=== PATIENT | female | born 1955 | race Caucasian/White ===

== ENCOUNTER 2016-06-21 06:14 | Inpatient (IN) | payer OTHER ==
[2016-06-20 13:29] VITALS: BMI 38.2
[~2016-06-21 06:14] MED LIST: BACITRACIN 30 GM TUBE TOPICAL OINTMENT TP ONE; BACITRACIN 50,000 UNITS VIAL TP ONE; THROMBIN (BOVINE) 5,000 UNIT VIAL TP ONE
[2016-06-21] MEDS ORDERED: ROCURONIUM BROMIDE 50 MG/5 ML VIAL ONE (08:16)
[2016-06-21] MEDS ORDERED: PROPOFOL 20 ML ONE ×24 (08:16→15:13)
[2016-06-21] MEDS ORDERED: MIDAZOLAM HCL 2 MG/2 ML SINGLE DOSE VIAL ONE ×2 (08:16)
[2016-06-21] MEDS ORDERED: SCOPOLAMINE HYDROBROMIDE 1 PATCH PATCH.TD72 ONE (08:33)
[2016-06-21] MEDS ORDERED: VANCOMYCIN 1,000 MG VIAL (RESTRICTED TO ID ONLY) ONE (08:58)
[2016-06-21] MEDS ORDERED: LEVOFLOXACIN 500 MG IVPB 100 ML IVPB ONE (08:58)
[2016-06-21] MEDS ORDERED: VANCOMYCIN 1 GRAM (PRE-DOCKED) 1,000 MG/250 ML BAG IVPB ONE ×2 (08:58→22:00)
[2016-06-21] MEDS ORDERED: THROMBIN (BOVINE) 5,000 UNIT VIAL TP ONE ×2 (09:30)
[2016-06-21] MEDS ORDERED: BACITRACIN 50,000 UNITS VIAL TP ONE ×2 (09:30)
[2016-06-21] MEDS ORDERED: LEVOFLOXACIN 500 MG PREMIX BAG IVPB ONE (09:40)
[2016-06-21] MEDS ORDERED: ONDANSETRON 4 MG/2 ML VIAL ONE (10:02)
[2016-06-21] MEDS ORDERED: DEXAMETHASONE SOD PHOSPHATE 4 MG/1 ML VIAL ONE (10:02)
[2016-06-21] MEDS ORDERED: GLYCOPYRROLATE 0.2 MG/1 ML VIAL ONE (10:32)
[2016-06-21] MEDS ORDERED: NEOSTIGMINE METHYLSULFATE 0.5 MG/ML - 10 ML MDV ONE (10:32)
[2016-06-21] MEDS ORDERED: BACITRACIN 30 GM TUBE TOPICAL OINTMENT ONE (15:00)
[2016-06-21] MEDS ORDERED: BUPIVACAINE HCL/PF 0.5% (5MG/ML) 10 ML VIAL ONE (15:00)
[2016-06-21] MEDS ORDERED: BUPIVACAINE HCL/PF 0.5% (5MG/ML) 10 ML VIAL IJ ONE (15:00)
[2016-06-21] MEDS ORDERED: BACITRACIN 30 GM TUBE TOPICAL OINTMENT TP ONE (16:23)
--- NOTE | 2016-06-21 16:29 | OP ---
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; L4-5 and L5 -S1 DDD; lumbar radiculopathy Operation: Redo bilateral L3,4,5,S1 lamniectomies, L3-4, L4-5, L5-S1 discectomies, autologous bone graft, interbody fusion L3-4, L4-5, L5-S1; postero -lateral fusion L3-4, L4-5, L5-S1; pedicle fixation L3-S1 with Mirza Isabella 4.5 system; 11 mm interbody implants L4-5 and L5-S1 and 13 mm interbody implants L3- 4; fluoroscopy Findings: dense R L3-4 fibrosis; instability L3-4; marked DDD space narrowing L4-5; lateral recess stenosis; thinned dura; attenuated R LE SSEP signal amplitude, improved with time Implants: Mirza Isabella 4.5 system (6.5 x 45 mm screws B L3-4-5 and 7.5 x 40 mm B S1 screws; 80 mm rods B, 36 mm croslinks x2); B interbody corticocancellous implants L3-4 (13mm) and L4-5/L5-S1 (11mm); autograft' duragen; Duraseal Surgeon: Michael Floyd ([place]) Microscopist: Robyn Alfaro Anesthesiologist/AUTOMOTIVE PARTS COUNTER ASSISTANT: Isabella Her Anesthesia: General Specimens Removed: L3-4, L4-5, L5-S1 DDD Estimated Blood Loss (mls): 750 Drains & Tubes with Location: 10 Flat THU epidural drain
[2016-06-21] MEDS ORDERED: BISACODYL 10 MG SUPP.RECT RC PRN (16:34)
[2016-06-21] MEDS ORDERED: ONDANSETRON 4 MG/2 ML VIAL IVPB PRN (16:34)
[2016-06-21] MEDS ORDERED: ALBUTEROL SO4 6.7 GM HFA INHALER IH PRN ×2 (16:38→17:44)
[2016-06-21] MEDS ORDERED: DEXAMETHASONE SOD PHOSPHATE 4 MG/1 ML VIAL IVPUSH PRN (16:54)
[2016-06-21] MEDS ORDERED: ONDANSETRON 4 MG/2 ML VIAL IVPUSH PRN (16:54)
[2016-06-21] MEDS ORDERED: PROMETHAZINE HCL 25 MG/1 ML VIAL IVPB PRN (16:54)
[2016-06-21] MEDS ORDERED: HYDROmorphone HCL CARPU-JECT 2 MG/1 ML DISP.SYRIN ONE (16:59)
[2016-06-21] MEDS: HYDROmorphone HCL CARPU-JECT 1 MG/1 ML DISP.SYRIN IVPUSH PRN ×2 (17:02→17:45)
--- NOTE | 2016-06-21 17:17 | PN ---
Progress Note (short form) - Note Progress Note: NEUROSURGERY In PACU AF, VSS Sleepy Drain- 25 cc Dressing C/D/I Mild redness R breast Moving B UE and LE at least 3-4-/5 FUR TAILOR and valium Labs pending Spoke to family re: intra-op findings
[2016-06-21 18:21] LABS: MCH 27.9 pg (25.7-33.7); MCHC 32.3 g/dl (32.0-36.0); MEAN CELL VOLUME 86.3 fl (80-96); MEAN PLT VOLUME 9.9 fl (7.5-11.1); PLATELET COUNT 269 K/MM3 (134-434); RDW 14.2 % (11.6-15.6); WHITE BLOOD COUNT 21.6 K/mm3 (4.0-10.0)
[2016-06-21] MEDS: HYDROmorphone *PCA* 10MG/50ML DISP.SYRIN PCA SCH (18:26)
[2016-06-21 19:30] LABS: CALCIUM 8.4 mg/dL (8.5-10.1); CREATININE 1.2 mg/dL (0.55-1.02)
[2016-06-21 20:33] LABS: PLATELET ESTIMATE ADEQUATE (NORMAL)
[2016-06-21] MEDS: D5-1/2NS+20 MEQ KCL - 1,000 ML IV SCH (21:52)
--- NOTE | 2016-06-21 22:53 | OP ---
DATE OF OPERATION:06/21/2016 DATE OF DICTATION: 06/21/2016 PREOPERATIVE DIAGNOSIS: Instability and radiculopathy at L3-4, L4-5, and L5-S1 levels. POSTOPERATIVE DIAGNOSIS: Instability and radiculopathy at L3-4, L4-5, and L5-S1 levels. PROCEDURE: L3 through S1 interbody fusion and instrumentation and laminectomy. SURGEON ATTENDING: Priyanka Boudreaux M.D. CO-SURGEON: Michael Floyd M.D. ANESTHESIA: General endotracheal intubation. POSITION: Prone. CLOSURE: 0 Vicryl fascia, 3-0 subcutaneous, and 4-0 undyed Vicryl to skin with Steri-Strips. ESTIMATED BLOOD LOSS: Refer to Dr. Michael Floyd's dictation. DESCRIPTION OF PROCEDURE: The patient is taken to the operating room on June 21, 2016. My portion of this procedure was opening and gaining access to the lumbar spine as far as the interbody fusion and please see Dr. Michael Floyd's dictation for all description of that part of the procedure. Patient was taken to the operating room on June 21, 2016. General endotracheal anesthesia was administered by the anesthesiologist. IV Kefzol administered prophylactically prior to the case. The patient was placed in the prone position with all prominences well padded. The lower lumbar region was prepped and draped in the usual sterile fashion. A spinal needle was used to isolate the level that needed to be operated on. A spinal needle was placed followed by an x-ray confirming the appropriate level. The lower lumbar region was then prepped and draped in the usual sterile fashion. A midline incision from L3 down to S1 was incised. Hemostasis was achieved with Bovie cautery and sharp dissection was carried down to the level of the spinous processes, and then subperiosteal dissection was performed down to the level of the lamina. At this time, Dr. Michael Floyd took over. Please see his dictation for the rest of this dictation and the interbody fusion procedure. Post Dr. Floyd's fusion from L3-S1, the wound was closed in layers with 0 Vicryl fascia, 2-0 and 3-0 subcutaneous and 4-0 undyed Vicryl for skin with Steri- Strips. A pressure dressing was applied. Patient awakened from anesthesia, transferred to recovery in stable condition. No complications. PRIYANKA BOUDREAUX M.D. [id number] MTDHermelinda
[2016-06-21] MEDS: MONTELUKAST NA 10 MG TABLET PO SCH (23:31)
[2016-06-21] MEDS: diazePAM 5 MG TABLET PO SCH (23:31)
[2016-06-21] MEDS: DOXAZOSIN MESYLATE 2 MG TABLET (FP) PO SCH (23:31)
[2016-06-21] MEDS: DOCUSATE SODIUM 100 MG CAPSULE (FP) PO SCH (23:32)
[2016-06-21] MEDS: hydrALAZINE HCL 50 MG TABLET (FP) PO SCH (23:32)
[2016-06-21] MEDS: VALSARTAN 160 MG TABLET (UD) PO SCH (23:32)
[2016-06-21] MEDS: BUDESONIDE/FORMETEROL FUMARATE 80/4.5 mcg INHALER IH SCH (23:32)
[2016-06-22] MEDS ORDERED: PT OWN MED DRAWER 7, Y5N ONE ×2 (06:01→23:10)
[2016-06-22] MEDS: diazePAM 5 MG TABLET PO SCH ×3 (06:03→23:03)
[2016-06-22] MEDS: DOCUSATE SODIUM 100 MG CAPSULE (FP) PO SCH ×3 (06:03→23:03)
--- NOTE | 2016-06-22 07:15 | PN ---
Progress Note (short form) - Note Progress Note: NEUROSURGERY POD #1 Incisional pain; + nausea Tmax 100 now 99.5 Sleepy Drain- 150 cc total Dressing C/D/I Mild redness R breast Moving B UE 4+; B IP 4; B DF 4+; R PF 4, L PF 4+ pain limited Sensation grossly intact VOICE PATHOLOGIST and valium for pain and muscle spasm WBC 21.6; Hgb 10.7; ; Cr 1.2; BUN 20; repeat AM labs pending Bed rest today Incentive spirometry Spoke to pt re: intra-op findings
[2016-06-22 07:30] LABS: MCHC 32.4 g/dl (32.0-36.0); MEAN CELL VOLUME 86.5 fl (80-96); MEAN PLT VOLUME 9.1 fl (7.5-11.1); PLATELET COUNT 206 K/MM3 (134-434); WHITE BLOOD COUNT 21.1 K/mm3 (4.0-10.0)
[2016-06-22 08:12] LABS: ALBUMIN 2.8 g/dl (3.4-5.0); CALCIUM 7.8 mg/dL (8.5-10.1)
[2016-06-22 08:15] LABS: BILIRUBIN,TOTAL 0.6 mg/dL (0.2-1.0); CREATININE 1.8 mg/dL (0.55-1.02); TOT PROT 5.5 g/dl (6.4-8.2)
[2016-06-22] MEDS: ALBUTEROL SO4 0.083% IH SOL 2.5 MG/3 ML VIAL.NEB. NEB PRN ×2 (09:15→18:03)
[2016-06-22] MEDS: VALSARTAN 160 MG TABLET (UD) PO SCH ×2 (10:57→23:03)
[2016-06-22] MEDS: hydrALAZINE HCL 50 MG TABLET (FP) PO SCH ×2 (10:57→23:02)
[2016-06-22] MEDS: FUROSEMIDE 20 MG TABLET (FP) PO SCH (10:57)
[2016-06-22] MEDS: PANTOPRAZOLE 40 MG TABLET (FP) PO SCH (10:57)
[2016-06-22] MEDS: DOXAZOSIN MESYLATE 2 MG TABLET (FP) PO SCH ×2 (10:57→23:02)
[2016-06-22] MEDS: BUDESONIDE/FORMETEROL FUMARATE 80/4.5 mcg INHALER IH SCH ×2 (12:47→23:11)
[2016-06-22] MEDS: NYSTATIN POWDER 100,000 UNITS/GM - 15 GM TOPICAL POWDER TP SCH (12:47)
--- NOTE | 2016-06-22 14:56 | PN ---
Progress Note (short form) - Note Progress Note: Anesthesia POD#1 S/P Lumbar Fusion from L3-S1 under GA and Dilaudid RADIO COMMUNICATIONS MECHANICIAN for Pain Vitals Stable Pain is under control with RADIO COMMUNICATIONS MECHANICIAN Right breast redness from being supine. Drowsy,otherwise responsive Hg dropped a little. Creatinine is rising. A/P Continue RADIO COMMUNICATIONS MECHANICIAN for today.increase her hydration. No complications to anesthesia seen. Breast will recover with time. Isabella Her MD.
[2016-06-22] MEDS: D5-1/2NS+20 MEQ KCL - 1,000 ML IV SCH (17:25)
[2016-06-22] MEDS: CLINDAMYCIN 600MG PREMIX IVPB 50 ML IVPB SCH ×2 (17:25→23:02)
[2016-06-22] MEDS: HYDROmorphone *PCA* 10MG/50ML DISP.SYRIN PCA SCH ×2 (18:42→20:01)
[2016-06-22] MEDS: MONTELUKAST NA 10 MG TABLET PO SCH (23:03)
[2016-06-23] MEDS: ACETAMINOPHEN 325 MG TABLET (FP) PO PRN ×2 (00:33→13:14)
[2016-06-23] MEDS: CLINDAMYCIN 600MG PREMIX IVPB 50 ML IVPB SCH ×2 (02:22→10:10)
[2016-06-23] MEDS: diazePAM 5 MG TABLET PO SCH ×3 (06:39→21:40)
[2016-06-23] MEDS: DOCUSATE SODIUM 100 MG CAPSULE (FP) PO SCH ×3 (06:39→21:40)
[2016-06-23] MEDS: D5-1/2NS+20 MEQ KCL - 1,000 ML IV SCH (06:47)
--- NOTE | 2016-06-23 07:39 | PN ---
Progress Note (short form) - Note Progress Note: NEUROSURGERY POD #2 Incisional pain; + nausea Tmax 102.4 now 98.1 Sleepy Drain- 210 cc total; minimal 1 cc since midnight (clogged) Dressing with moderate drainage Moving B UE 4+; B IP 4; B DF 4+; R PF 4, L PF 4+ pain limited Sensation grossly intact MYSQL DATABASE ADMINISTRATOR and valium for pain and muscle spasm WBC 21.1; Hgb 9.3; Cr 1.8; BUN 26 Drain DC'd Bed rest today Incentive spirometry Cont IVF given Cr Medical f/u
[2016-06-23] MEDS: ALBUTEROL SO4 0.083% IH SOL 2.5 MG/3 ML VIAL.NEB. NEB PRN (08:07)
--- NOTE | 2016-06-23 08:18 | PN ---
Progress Note, Physician Chief Complaint: Pt. had some shortness of breath as I walked into room. Found respiratory therapist to give breathing treatment. Still has pain controlled by DOOR INSTALLER. No complications. - Current Medication List Current Medications: Active Medications Acetaminophen (Tylenol -) 650 mg PO Q6H PRN PRN Reason: FEVER Last Admin: 06/23/16 00:33 Dose: 650 mg Albuterol Sulfate (Ventolin Hfa Inhaler -) 1 puff IH QID PRN PRN Reason: Wheezing-SOB Albuterol Sulfate (Ventolin Hfa Inhaler -) 2 puff IH QID PRN PRN Reason: WHEEZING/SOB Albuterol Sulfate (Ventolin 0.083% Nebulizer Soln -) 1 amp NEB Q4H PRN PRN Reason: SHORT OF BREATH/WHEEZING Last Admin: 06/23/16 08:07 Dose: 1 amp Bisacodyl (Dulcolax Suppository -) 10 mg RC DAILY PRN PRN Reason: CONSTIPATION Budesonide/Formoterol Fumarate (Symbicort 80/4.5mcg -) 2 puff IH BID [facility] Last Admin: 06/22/16 23:11 Dose: 2 puff Dexamethasone Sodium Phosphate (Decadron Injection -) 4 mg IVPUSH ONCE PRN PRN Reason: NAUSEA AND/OR VOMITING Diazepam (Valium -) 10 mg PO TID [facility] Last Admin: 06/23/16 06:39 Dose: 10 mg Diphenhydramine HCl (Benadryl Injection -) 12.5 mg IVPUSH ONCE PRN PRN Reason: FOR ITCHING Docusate Sodium (Colace -) 100 mg PO TID [facility] Last Admin: 06/23/16 06:39 Dose: 100 mg Doxazosin Mesylate (Cardura -) 8 mg PO BID [facility] Last Admin: 06/22/16 23:02 Dose: 8 mg Furosemide (Lasix -) 20 mg PO DAILY [facility] Last Admin: 06/22/16 10:57 Dose: Not Given Hydralazine HCl (Apresoline -) 50 mg PO BID [facility] Last Admin: 06/22/16 23:02 Dose: 50 mg Hydromorphone HCl (Dilaudid Injection -) 1 mg IVPUSH [id number] PRN PRN Reason: PAIN Stop: 06/24/16 16:55 Last Admin: 06/21/16 17:45 Dose: 1 mg Hydromorphone HCl (Dilaudid Funder -) 10 mg DOOR INSTALLER DOOR INSTALLER ALISE PRN Reason: Protocol Stop: 06/28/16 16:55 Last Admin: 06/22/16 20:01 Dose: Not Given Potassium Chloride/Dextrose/Sod Cl (D5-1/2ns+20 Meq Kcl -) 1,000 mls @ 100 mls/ hr IV ASDIR ALISE Last Admin: 06/23/16 06:47 Dose: 100 mls/hr Potassium Chloride/Dextrose/Sod Cl (D5-1/2ns+20 Meq Kcl -) 1,000 mls @ 42 mls/ hr IV ASDIR ALISE Clindamycin Phosphate (Cleocin 600 Mg Premix Ivpb -) 50 mls @ 100 mls/hr IVPB Q6H-IV [facility] Last Admin: 06/23/16 02:22 Dose: 100 mls/hr Montelukast Sodium (Singulair -) 10 mg PO HS [facility] Last Admin: 06/22/16 23:03 Dose: 10 mg Nystatin (Nystop Powder -) 1 applic TP DAILY [facility] Last Admin: 06/22/16 12:47 Dose: 1 applic Ondansetron HCl (Zofran Injection) 4 mg IVPB Q6H PRN PRN Reason: NAUSEA AND/OR VOMITING Pantoprazole Sodium (Protonix -) 40 mg PO DAILY [facility] Last Admin: 06/22/16 10:57 Dose: 40 mg Promethazine HCl (Phenergan Injection -) 12.5 mg IVPB Q6H PRN PRN Reason: NAUSEA AND/OR VOMITING Valsartan (Diovan -) 160 mg PO BID [facility] Last Admin: 06/22/16 23:03 Dose: 160 mg Vancomycin HCl (Vancomycin (Pre-Docked)) 1,000 mg IVPB BID [facility] PRN Reason: Protocol Stop: 06/22/16 21:59 - Objective Vital Signs: Vital Signs Temperature 98.7 F 06/23/16 06:00 Pulse Rate 93 H 06/23/16 06:00 Respiratory Rate 16 06/23/16 06:00 Blood Pressure 109/54 06/23/16 06:00 O2 Sat by Pulse Oximetry (%) 94 L 06/22/16 21:00 Constitutional: Yes: Well Nourished, Mild Distress Neurological: Yes: WNL, Alert, Oriented Labs: CBC, BMP 06/22/16 06:50 06/22/16 06:50 Assessment/Plan POD#1 s/p PLIF L3-S1 under GA with Dilaudid DOOR INSTALLER. Doing well from anesthesia standpoint. Continue DOOR INSTALLER.
--- NOTE | 2016-06-23 08:27 | CONSULT ---
Consult - History of Present Illness History of Present Illness: 60 Y/O FEMAL S/P BACK SURGERY NOTED WITH ELEVATED CR PT C/O BACK PAIN DENIES ANY CP OR SOB - Past Medical History Cardio/Vascular: Yes: HTN, Hyperlipdemia Pulmonary: Yes: Asthma, Bronchitis, COPD Gastrointestinal: Yes: GERD ...: No - Past Surgical History Past Surgical History: Yes: Laminectomy (s/p epidural abscess), Splenectomy - Alcohol/Substance Use Hx Alcohol Use: Yes (OCCAS) - Smoking History Smoking history: Former smoker Have you smoked in the past 12 months: No Aproximately how many cigarettes per day: 0 If you are a former smoker, when did you quit?: OVER 25 YEARS AGO Home Medications - Allergies Allergies/Adverse Reactions: Allergies Allergy/AdvReac Type Severity Reaction Status Date / Time Penicillins Allergy Severe Hives Verified 09/13/15 15:12 Sulfa (Sulfonamide Allergy Unknown Verified 06/20/16 13:31 Antibiotics) EGGS Allergy Severe Uncoded 06/20/16 13:31 flu shot AdvReac Severe Uncoded 06/21/16 07:10 - Home Medications Home Medications: Ambulatory Orders Albuterol Sulfate Inhaler - [Ventolin HFA Inhaler -] 1 - 2 inh PO QID PRN Doxazosin Mesylate [Cardura -] 8 mg PO BID #30 tablet 04/30/14 Furosemide [Lasix -] 20 mg PO DAILY #30 tablet 04/30/14 Montelukast Na [Singulair -] 10 mg PO HS #30 tablet 04/30/14 Pantoprazole Sodium [Protonix -] 40 mg PO DAILY #30 tablet.ec 04/30/14 Potassium Chloride [K-Dur -] 20 meq PO DAILY #30 tablet.er 04/30/14 Valsartan [Diovan] 160 mg PO BID #30 tablet 04/30/14 Aspirin [Aspirin EC] 325 mg PO DAILY 01/04/15 Hydralazine HCl 50 mg PO BID 01/05/15 Fluticasone/Salmeterol [Advair 250-50 Diskus] 1 each IH BID 09/13/15 Oxycodone HCl 10 mg PO Q6H PRN #30 tablet MDD UNKNOWN 09/17/15 Family Disease History - Family Disease History Family Disease History: Heart Disease: Father Review of Systems - Review of Systems Cardiovascular: denies: Chest Pain Respiratory: denies: SOB Gastrointestinal: denies: Abdominal Pain Musculoskeletal: reports: Back Pain Physical Exam Vital Signs: Vital Signs Temperature 98.7 F 06/23/16 06:00 Pulse Rate 93 H 06/23/16 06:00 Respiratory Rate 16 06/23/16 06:00 Blood Pressure 109/54 06/23/16 06:00 O2 Sat by Pulse Oximetry (%) 94 L 06/22/16 21:00 Cardiovascular: Yes: Tachycardia, S1, S2 Respiratory: Yes: Regular, CTA Bilaterally Gastrointestinal: Yes: Normal Bowel Sounds, Soft Edema: No Labs: CBC, BMP 06/22/16 06:50 06/22/16 06:50 Problem List - Problems (1) Diabetes Assessment/Plan: BG COVERAGE Code(s): E11.9 - TYPE 2 DIABETES MELLITUS WITHOUT COMPLICATIONS Qualifiers: Diabetes mellitus type: type 2 (2) HTN (hypertension) Assessment/Plan: MONITOR BP Code(s): I10 - ESSENTIAL (PRIMARY) HYPERTENSION Qualifiers: Hypertension type: essential hypertension Qualified Code(s): I10 - Essential (primary) hypertension (3) Fever Assessment/Plan: INCENTIVE SPIROMETRY MONITOR TEMPS ID Code(s): R50.9 - FEVER, UNSPECIFIED (4) Leukocytosis Assessment/Plan: H/O MPS--THIS IS HIGHER THAN BASELINE FOLLOW LABS CULTURES ID Code(s): D72.829 - ELEVATED WHITE BLOOD CELL COUNT, UNSPECIFIED (5) Anemia Assessment/Plan: MONITOR AND TRANSFUSE Code(s): D64.9 - ANEMIA, UNSPECIFIED
--- NOTE | 2016-06-23 08:37 | OP ---
DATE OF OPERATION: 06/21/2016 PREOPERATIVE DIAGNOSES: 1. L4-L5 greater than L5-S1 degenerative disease with lateral recess and foraminal stenosis. 2. L3-L4 prior infection with instability. 3. Obesity. 4. Borderline diabetes. 5. Hypertension. 6. Asthma/chronic obstructive pulmonary disease. POSTOPERATIVE DIAGNOSES: 1. L4-L5 greater than L5-S1 degenerative disease with lateral recess and foraminal stenosis. 2. L3-L4 prior infection with instability. 3. Obesity. 4. Borderline diabetes. 5. Hypertension. 6. Asthma/chronic obstructive pulmonary disease. PROCEDURES PERFORMED: 1. Re-do and expansion of prior laminectomy for spinal canal and lateral recess decompression, including facetectomy and foraminotomy at L3, L4, L5 and S1 for decompression of the thecal sac as well as the bilateral L3, L4, L5 and S1 nerve roots (67933-68, 81474-50, 33702-16 and 22653-03). 2. Carlton of autologous laminar and spinous process bone graft and bone dust for fusion (04043). 3. Bilateral L3-L4, L4-L5 and L5-S1 diskectomy. 4. Posterior lumbar interbody fusion L3-L4, L4-L5 and L5-S1 (09043, 76367 and 80740). 5. Intraoperative fluoroscopy for localization and pedicle screw fixation system placement (35006-03). 6. Posterior lumbar pedicle screw fixation system placement from L3 to S1, with [employer] Isabella-4.5 titanium system (6.5- x 45-mm screws at L3, L4, and L5 bilaterally, and 7.5- x 40-mm screws to S1 bilaterally), connected by 80-mm rods bilaterally and two 30-mm crosslinks (70440). 7. Posterolateral autologous bone graft fusion from L3-L4, L4-L5 to L5-S1 ( 38326, 81077 and 12498). 8. Microsurgical dissection with the operative microscope with microsurgical technique for lysis of epidural adhesions (29701). 9. Utilization of intervertebral prosthetic device with 13-mm devices bilaterally at L3-L4 and 11-mm devices bilaterally at L4-L5 to L5-S1 (38275, 60331-84 and 93255 -59). ATTENDING SURGEON: Michael Floyd MD CO-SURGEON: Rishabh Boudreaux MD ANESTHESIA: General endotracheal. ANESTHESIOLOGIST: Isabella Her MD, and Bharathi Goodwin MD ESTIMATED BLOOD LOSS: 700 mL. FINDINGS: 1. Gross instability, L3-L4. 2. Severe degenerative disk space narrowing at L4-L5 greater than L5-S1. 3. Bilateral irritable lumbar nerve roots at L3, L4, L5 and S1, left greater than right. 4. Attenuated SSEP amplitude in the left lower extremity. INDICATIONS: The patient is a 60-year-old female with intractable lower back pain and lumbar radiculopathy. She previously underwent a right L3-L4 laminectomy and debridement of paraspinal epidural abscess several years ago. She was found to have progressive degenerative disk disease unresponsive to extensive conservative treatment. She has now consented for lumbar decompression and fusion with instrumentation. The plan was to do L4 to S1. However, the patient had prior infection at L3-L4, and the L3-L4 segment may be included into the fusion. No guarantees were given for a favorable outcome. The risks of the procedure include but are not limited to bleeding, infection, dural tear with CSF leak, neurological injury, including thromboembolic risk, DC, stroke, coma, and other risks of general anesthesia. Because of her medical conditions and prior infection, her risks are significantly higher than previously, and the patient understands that. No guarantees were given for a favorable outcome. Intraoperative SSEP and EMG monitoring was instituted. DESCRIPTION OF PROCEDURE: After the patient was taken to the operating room and was placed in the supine position. After general anesthesia was induced, appropriate monitoring lines were placed. A Meyer catheter was inserted. The patient was then turned into the prone position on a Adam frame. All pressure points were checked and padded. At this point, the posterior lumbar region was cleaned with alcohol and prepped with Betadine. Local anesthesia was obtained with a spinal needle. This was not really optimal because of the patient's size. Intraoperative fluoroscopy was needed in order to better localize the exposure. The exposure portion of the procedure was headed by Dr. Rishabh Boudreaux, under a separate heading. Extensive paraspinal fibrosis was noted on the right side at L3 and L4. After exposure was completed, the supraspinous/interspinous ligament was removed and localized fluoroscopic images were obtained. The spinous processes at L3, L4 and L5 were fully resected with a Leksell rongeur. The L3-L4 segment was hypermobile even prior to any soft tissue removal. It was grossly unstable. The spinous process was kept and morselized by a bone mill. A complete laminectomy at L3 as well as complete bilateral laminectomy at L4 and L5, as well as partial at S1 was carried out with the high-speed pneumatic drill, angled curette and Kerrison rongeur. Lysis of epidural adhesions was carried out with the use of the operating microscope for both illumination and magnification. Microsurgical techniques were utilized. The dura was extremely thinned out. It was kept moist periodically with antibiotic- containing irrigation. The nerve roots were also very sensitive to any nearby bipolar electrocautery stimulation or mechanical stimulation. Epidural hemostasis was obtained with a combination of thrombin-soaked Gelfoam and bipolar electrocautery. The interbody fusion was planned at L4-L5 first. This was after medial facetectomy was carried out bilaterally at L3-L4, L4-L5 and L5-S1. Under gentle L5 nerve root retraction, the disk annulus was incised with a number 15 blade. The disk space was severely collapsed. A small disk space scraper was used, starting with 6 mm. It was slowly increased in height to 11 to 12 mm. Attention was turned to right-sided disk space, where the right-sided disk space was similarly cleaned out with a combination of pituitary rongeur as well as scrapers. The disk space height was slowly increased to about 11 mm as well. This was chosen to be done first because of the significantly decreased disc space height at this level. An 11-mm cortical cancellous interbody implant from [employer] was inserted and countersunk by about 3 mm. Attention was then turned to the left side disk space, where the procedure was similarly performed. This was after disk material was removed with downgoing curette and upgoing pituitary rongeur. The disk space was prepared with different sizes of curettes as well as high-speed pneumatic drill. Another 11- mm interbody implant was similarly inserted on the left side. Attention was turned to the L3-L4 interspace where the disk annulus was incised with a number 15 blade. Serially larger disk space scrapers were used up to 13 mm. A 14-mm interbody distractor was used and the right-sided disk space was similarly prepared. A 13-mm interbody implant was inserted and countersunk by about 5 mm. Attention was then turned to the left side disk space, where the disk space was prepared similarly and the central portion of the disk space was packed with autologous morselized bone graft and bone dust. This was also done at the L4-L5 level earlier. Another 13-mm interbody implant was inserted and countersunk by 5 mm as well. Attention was then turned to L5-S1, where the disk annulus was incised with a number 15 blade after gentle nerve root retraction. There was occasional, sporadic left S1 EMG activity. The nerve root was relaxed in order to allow signals to return to baseline. The disk space was similarly prepared with scrapers and curettes. It was then distracted with a 12-mm disk space distractor. There was some reduction of the SSEP amplitude and increasing latencies. Therefore, the distractor was removed. Attention was turned to the right side disk space, where the disk space was prepared with curettes, scrapers, as well as pituitary rongeurs. A 9-mm interbody implant was inserted and countersunk by about 5 mm. Initially, it was felt to be slightly loose. However, it was measured to be about 11 mm on the preoperative MR imaging. It was packed with autologous morselized bone graft and countersunk further. Attention was then turned to the left-sided disk space, where the disk material was similarly removed and the central portion of the disk space was packed with autologous morselized bone graft. Another 11-mm interbody implant was inserted. At this point, thought was given to increasing the interbody implant size to 13 mm. However, upon attempts to remove them, the implants felt fairly snug. Also, prior disk space distractor, 12 mm, caused deterioration of the SSEP signal, and it was decided not to increase the interbody implant height at L5-S1. Further the height based on pre -operative imaging of the disc space should be about 11 mm. At this point, the microscope was moved out of the way and the fluoroscope was moved down to the operating field. It had already been sterilely draped. The entry point and pedicle screw were marked with the high-speed pneumatic drill, and the screw holes were first made with handheld awls, and then tapped. The pedicle screw holes were then palpated with a probe prior to screw insertion. This was done with lateral fluoroscopic imaging. The bone quality was fairly poor after getting past the cortex. A medial screw angle of about 10 degrees was made. EMG thresholds were 20 mA for all screws except for right S1, which was 15 mA. Bicortical screw purchase was necessary at some levels in order to get good enough bone fixation because of the poor bone quality. The wound was irrigated intermittently with antibiotic-containing irrigation. The dura was quite thinned out under chronic pressure as well as prior infection and epidural fibrosis. Then, 80-mm rods were loaded on top of the screws and were locked down with locking screws. The screws were compressed at L3-L4 and L5-S1 prior to final tightening. Compression was not done at L4-L5 because there was significant narrowing at the L4-L5 interspace anyway. A torque wrench and counter-torque wrench were used to perform final tightening. A 36-mm crosslink was used at L5-S1 and L3-L4. The wound was irrigated with copious amounts of antibiotic-containing irrigation. Epidural hemostasis was obtained with bipolar electrocautery. A piece of Duragen was laid in the epidural space on the right side because of the extremely thinned out dura under chronic pressure as well as prior infection and epidural fibrosis. A thin layer of DuraSeal was also laid in the epigastric space, both for hemostasis as well as a precaution. After hemostasis of the paraspinal muscles was obtained with monopolar electrocautery, the posterolateral surface of the spine was packed with autologous morselized bone graft, which was the bone that we had harvested earlier. This was done at L3-L4, L4-L5 and L5-S1 for the posterolateral fusion. Decortication was performed earlier with a combination of a Leksell rongeur and high-speed pneumatic drill. A 10-mm flat THU drain was left in the epidural space and hooked up to bulb suction. The closing was dictated by Dr. Boudreaux under separate dictation. All needle and lap counts were correct. The patient tolerated the procedure well, was turned back to the supine position to be extubated. She was moving her bilateral lower extremities and upper extremities in the recovery room. A small rash was noted on her right breast and this was observed and did not appear to change in the recovery room. OR time-out procedure was followed. The patient received 1 dose of vancomycin for preoperative prophylaxis because of her PENICILLIN allergy as well as for the prior infection in her spine. She also received 500 mg of Levaquin as a precaution. The family was updated as to the intraoperative findings. MICHAEL FLOYD M.D. EDGAR/[id number] MTDD
[2016-06-23 08:51] LABS: MCH 28.1 pg (25.7-33.7); MEAN CELL VOLUME 87.6 fl (80-96); MEAN PLT VOLUME 9.1 fl (7.5-11.1); PLATELET COUNT 195 K/MM3 (134-434); RDW 13.9 % (11.6-15.6); WHITE BLOOD COUNT 23.7 K/mm3 (4.0-10.0)
[2016-06-23] MEDS: DOXAZOSIN MESYLATE 2 MG TABLET (FP) PO SCH ×2 (10:09→21:40)
[2016-06-23] MEDS: VALSARTAN 160 MG TABLET (UD) PO SCH ×2 (10:10→21:40)
[2016-06-23] MEDS: hydrALAZINE HCL 50 MG TABLET (FP) PO SCH ×2 (10:10→21:40)
[2016-06-23] MEDS: FUROSEMIDE 20 MG TABLET (FP) PO SCH (10:10)
[2016-06-23] MEDS: NYSTATIN POWDER 100,000 UNITS/GM - 15 GM TOPICAL POWDER TP SCH (10:11)
[2016-06-23] MEDS: BUDESONIDE/FORMETEROL FUMARATE 80/4.5 mcg INHALER IH SCH ×2 (10:11→21:43)
[2016-06-23] MEDS: PANTOPRAZOLE 40 MG TABLET (FP) PO SCH (10:11)
[2016-06-23 12:04] LABS: PLATELET ESTIMATE ADEQUATE (NORMAL)
[2016-06-23] MEDS: ALBUTEROL SO4 2.5/IPRATROPIUM 0.5 INH SOL 3 ML VIAL.NEB. NEB SCH ×2 (13:15→17:58)
--- NOTE | 2016-06-23 13:27 | PATH ---
Surgical Pathology Report Patient Name: FRED ALICEA Med. Rec. #: [id number] /Age/Gender: 1955 (Age: 60) / F Account: [id number] Location: [address] [place] [address]/[facility] Taken: 06/21/2016 Received: 06/22/2016 Reported: 06/23/2016 Physicians: Mainor Ayon M.D. Specimen(s) Received DISC L3-S1 Clinical History Degenerative disc disease, spondylolisthesis Final Diagnosis INTERVERTEBRAL DISC, L3-S1, DISCECTOMY: FRAGMENTS OF CARTILAGE AND BONE WITH DEGENERATIVE CHANGES. Electronically Signed Vic Frederick M.D. Gross Description Received in formalin labeled "L3-S1 disc" is a 2.4 x 1.1 x 0.3 cm aggregate of ruff-malave fragments of fibrocartilaginous tissue. The specimen is submitted in toto in one cassette. /06/22/201606/22/2016
--- NOTE | 2016-06-23 13:53 | PN ---
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 tretaed medical terminologist Currently getting blood - Current Medication List Current Medications: Active Medications Acetaminophen (Tylenol -) 650 mg PO Q6H PRN PRN Reason: FEVER Last Admin: 06/23/16 13:14 Dose: 650 mg Albuterol Sulfate (Ventolin Hfa Inhaler -) 1 puff IH QID PRN PRN Reason: Wheezing-SOB Albuterol Sulfate (Ventolin Hfa Inhaler -) 2 puff IH QID PRN PRN Reason: WHEEZING/SOB Albuterol Sulfate (Ventolin 0.083% Nebulizer Soln -) 1 amp NEB Q4H PRN PRN Reason: SHORT OF BREATH/WHEEZING Last Admin: 06/23/16 08:07 Dose: 1 amp Albuterol/Ipratropium (Duoneb -) 1 amp NEB QIDR [facility] Last Admin: 06/23/16 13:15 Dose: 1 amp Bisacodyl (Dulcolax Suppository -) 10 mg RC DAILY PRN PRN Reason: CONSTIPATION Budesonide/Formoterol Fumarate (Symbicort 80/4.5mcg -) 2 puff IH BID [facility] Last Admin: 06/23/16 10:11 Dose: 2 puff Dexamethasone Sodium Phosphate (Decadron Injection -) 4 mg IVPUSH ONCE PRN PRN Reason: NAUSEA AND/OR VOMITING Diazepam (Valium -) 10 mg PO TID [facility] Last Admin: 06/23/16 06:39 Dose: 10 mg Diphenhydramine HCl (Benadryl Injection -) 12.5 mg IVPUSH ONCE PRN PRN Reason: FOR ITCHING Docusate Sodium (Colace -) 100 mg PO TID [facility] Last Admin: 06/23/16 06:39 Dose: 100 mg Doxazosin Mesylate (Cardura -) 8 mg PO BID [facility] Last Admin: 06/23/16 10:09 Dose: 8 mg Furosemide (Lasix -) 20 mg PO DAILY [facility] Last Admin: 06/23/16 10:10 Dose: 20 mg Hydralazine HCl (Apresoline -) 50 mg PO BID [facility] Last Admin: 06/23/16 10:10 Dose: 50 mg Hydromorphone HCl (Dilaudid Injection -) 1 mg IVPUSH [id number] PRN PRN Reason: PAIN Stop: 06/24/16 16:55 Last Admin: 06/21/16 17:45 Dose: 1 mg Hydromorphone HCl (Dilaudid Wrapper Sheeter -) 10 mg PICTURE FRAMES INSPECTOR PICTURE FRAMES INSPECTOR [facility] PRN Reason: Protocol Stop: 06/28/16 16:55 Last Admin: 06/22/16 20:01 Dose: Not Given Potassium Chloride/Dextrose/Sod Cl (D5-1/2ns+20 Meq Kcl -) 1,000 mls @ 100 mls/ hr IV ASDIR [facility] Last Admin: 06/23/16 06:47 Dose: 100 mls/hr Potassium Chloride/Dextrose/Sod Cl (D5-1/2ns+20 Meq Kcl -) 1,000 mls @ 42 mls/ hr IV ASDIR ALISE Clindamycin Phosphate (Cleocin 600 Mg Premix Ivpb -) 50 mls @ 100 mls/hr IVPB Q6H-IV [facility] Last Admin: 06/23/16 10:10 Dose: 100 mls/hr Insulin Aspart (Novolog Vial Sliding Scale -) 1 vial SQ ACHS [facility] PRN Reason: Protocol Montelukast Sodium (Singulair -) 10 mg PO HS [facility] Last Admin: 06/22/16 23:03 Dose: 10 mg Nystatin (Nystop Powder -) 1 applic TP DAILY [facility] Last Admin: 06/23/16 10:11 Dose: 1 applic Ondansetron HCl (Zofran Injection) 4 mg IVPB Q6H PRN PRN Reason: NAUSEA AND/OR VOMITING Pantoprazole Sodium (Protonix -) 40 mg PO DAILY [facility] Last Admin: 06/23/16 10:11 Dose: 40 mg Promethazine HCl (Phenergan Injection -) 12.5 mg IVPB Q6H PRN PRN Reason: NAUSEA AND/OR VOMITING Valsartan (Diovan -) 160 mg PO BID [facility] Last Admin: 06/23/16 10:10 Dose: 160 mg Vancomycin HCl (Vancomycin (Pre-Docked)) 1,000 mg IVPB BID [facility] PRN Reason: Protocol Stop: 06/22/16 21:59 - Objective Vital Signs: Vital Signs Temperature 98.7 F 06/23/16 06:00 Pulse Rate 93 H 06/23/16 06:00 Respiratory Rate 16 06/23/16 06:00 Blood Pressure 109/54 06/23/16 06:00 O2 Sat by Pulse Oximetry (%) 94 L 06/22/16 21:00 Constitutional: Yes: Obese Eyes: Yes: WNL, Conjunctiva Clear HENT: Yes: WNL, Atraumatic Cardiovascular: Yes: Regular Rate and Rhythm, Tachycardia, S1, S2 Respiratory: Yes: WNL, Regular, CTA Bilaterally Gastrointestinal: Yes: WNL, Normal Bowel Sounds, Soft. No: Tenderness, Tenderness, Rebound Edema: No Labs: CBC, BMP 06/23/16 08:28 06/23/16 08:28 Problem List - Problems (1) Diabetes mellitus, insulin dependent (IDDM), uncontrolled Code(s): E10.65 - TYPE 1 DIABETES MELLITUS WITH HYPERGLYCEMIA (2) History of cervical spinal surgery Code(s): Z98.890 - OTHER SPECIFIED POSTPROCEDURAL STATES (3) Fever 106 degrees F or over Code(s): R50.9 - FEVER, UNSPECIFIED Assessment/Plan Microbiology 12/25/12 08:00 Tissue-Other Gram Stain - Final 12/25/12 08:00 Tissue-Other Tissue Culture - Final Micrococcus & Related Species 12/25/12 08:00 Tissue-Other Gram Stain - Final 12/25/12 08:00 Tissue-Other Tissue Culture - Final Bacillus Species, Not Antracis Laboratory Tests 06/22/16 06/23/16 06:50 08:28 WBC 23.7 H Hgb 8.5 L Hct 26.5 L Plt Count 195 Monocytes % 6.0 D Eosinophils % 1.0 D Creatinine 1.8 H D Total Bilirubin 0.6 Alkaline Phosphatase 71 Total Protein 5.5 L Albumin 2.8 L Chest xray with no infiltrate seen Assessment Day 2 post op cervical spine surgery with fever the next day which appears quite soon for infection to occur surrounding surgery. Additional complicating factors include elevated WBC but she always has a high WBC count from prior splenectomy. Yes her WBC is higher then normal but she did have major surgery ( stress response) and did apparently receive Decadron in the OR. Currently getting blood transfusion which may contribute to fever. Additionally blood cultures drawn today but having recieved Vancomycin Levofloxacin and Clindaymycin previously. She is hemodynamically stable at the current time and only on gram positive coverage with Clinda. Staci GARCIA allergy ? reaction ? did she recieive cephalosporins at some time pharmacy cannot say. I am not surprised she would have some post op fever. Plan My inclination is to stop antibiotics Reculture should fever recur OFF antibiotics If needed Vancomycin based on body weight of 15mg/kg q12h sould be given along with Aztreonam 2 gram q8H Will watch her carefully over the next few days Efra ROWLAND
--- NOTE | 2016-06-23 14:25 | PN ---
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 Prior splenectomy WBC always high. Getting blood transfusion now Got Vanco Levoflox and Decadron 06/21 and now Clindamycin Hemodynamically stable Selected Entries 06/23/16 06:00 Temperature 98.7 F Pulse Rate 93 H Respiratory 16 Rate Blood Pressure 109/54 Laboratory Tests 06/22/16 06/23/16 06:50 08:28 WBC 23.7 H Hgb 8.5 L Hct 26.5 L Plt Count 195 Neutrophils % 59.0 D Lymphocytes % 34.0 D Monocytes % 6.0 D Eosinophils % 1.0 D BUN 26 H D Creatinine 1.8 H D Creat Clearance w eGFR 28.60 Assessment Post op fever not surprising after lumbar surgery. WBC up from splenectomy stress and steroids decadron Blood cultures today but already treated previously. On Clindamycin currently Advise Stop all antibiotics Observe carefully over next 24-48hours If we need to resume therapy ( PCN allergy) Vancomycin 15mg/gk first dose Aztreonam 2 grs stat dose Efra ROWLADN Problem List - Problems (1) Diabetes mellitus, insulin dependent (IDDM), uncontrolled Code(s): E10.65 - TYPE 1 DIABETES MELLITUS WITH HYPERGLYCEMIA (2) History of cervical spinal surgery Code(s): Z98.890 - OTHER SPECIFIED POSTPROCEDURAL STATES (3) Fever 106 degrees F or over Code(s): R50.9 - FEVER, UNSPECIFIED
[2016-06-23 15:08] LABS: CREATININE 1.6 mg/dL (0.55-1.02)
--- NOTE | 2016-06-23 16:24 | CONS ---
DATE OF CONSULTATION: HISTORY: This is one of multiple admissions for this 60-year-old previously splenectomized female who I am asked to see for postoperative fever after cervical spine surgery by Dr. Floyd and Dr. Boudreaux on June 21. The patient has a history of COPD, diabetes mellitus, hyperlipidemia, and prior splenectomy many years ago. In 2012 she had been diagnosed with a cervical spine infection the source of which was not known. She was taken to the operating room and had a laminectomy performed and spinal surgery cultures dated May 05, 2012 grew micrococcus and related species as well as a bacillus species not anthracis. I do not have all of the medical records from that admission at the current time, but I do know that we were involved in her care at that time, and she was treated with a PICC line for several weeks of treatment. She has had chronic low back pain and cervical spine pain, and she was electively admitted for surgery performed June 21, 2016. The preoperative diagnosis was instability and radiculopathy at L3-L4, L4-L5, and L5-S1 levels. She is now having postoperative fever, and I am asked to see her for further admission. Her white count, usually chronically elevated, was also more elevated than normal at 23,000. Blood cultures were obtained today, but she had been treated with Decadron in the OR along with vancomycin and Levaquin. She denies any cough, abdominal pain and has an indwelling Meyer catheter. A urine culture has been requested. PAST MEDICAL HISTORY: As noted above. MEDICATIONS: Decadron previously given, Cardura, Diovan, Ventolin. ALLERGIES: None known. SOCIAL HISTORY: Former smoker. No ETOH. REVIEW OF SYSTEMS: Reviewed and noncontributory. PHYSICAL EXAMINATION: General: A well-nourished appearing woman in no acute distress. Vital Signs: Currently afebrile, pulse 93, blood pressure 109/54, respirations 16. Neck: Supple. Lungs: Clear to P and A. Heart: S1, S2. Regular rhythm. Tachycardic. Abdomen: Soft and nontender. Extremities: Without edema. The white count is 23.7, hemoglobin 8.5, platelets 195, BUN 26, creatinine 1.8. Liver enzymes within normal limits. ASSESSMENT: Status post lumbar surgery June 21 with bilateral L3, L4, L5, and S1 laminectomies, diskectomies, and autologous bone graft with placement of hardware and pedicle fixation. Underlying diabetes mellitus. WBCs may be related to stress response as well as prior splenectomy. She is hemodynamically stable. She has an allergy to penicillin. I would stop all of her antibiotics at this time and observe her with repeat cultures off antibiotics should she remain febrile. Empiric therapy with vancomycin and aztreonam should antibiotics be needed over the next 24-48 hours. CINDY SMITH M.D. [id number]
--- NOTE | 2016-06-23 17:52 | SURG ---
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 For further detail, please refer to operative report. Visit type - Case Type Case Type: Scheduled Admission - Emergency Emergency Visit: No - New patient This patient is new to me today: Yes Date on this admission: 06/23/16 - Critical Care Critical Care patient: No
[2016-06-23 18:04] LABS: URINE APPEARANCE CLEAR; URINE BILIRUBIN NEGATIVE (NEGATIVE); URINE COLOR COLORLESS; URINE GLUCOSE (UA) NEGATIVE (NEGATIVE); URINE KETONE NEGATIVE (NEGATIVE); URINE LEUK ESTERASE NEGATIVE (NEGATIVE); URINE NITRITE NEGATIVE (NEGATIVE); URINE PROTEIN NEGATIVE (NEGATIVE); URINE UROBILINOGEN NEGATIVE E.U./dl (0.2-1.0)
[2016-06-23 18:18] LABS: URINE BLOOD 1+ (NEGATIVE)
[2016-06-23] MEDS ORDERED: PT OWN MED DRAWER 7, Y5N ONE (21:34)
[2016-06-23] MEDS: MONTELUKAST NA 10 MG TABLET PO SCH (21:40)
[2016-06-23] MEDS: INSULIN SLIDING SCALE (NOVOLOG) 1 VIAL SQ SCH (21:42)
[2016-06-24 00:11] LABS: URINE RBC 1 /hpf (0-3); URINE WBC <1 /hpf (3-5)
[2016-06-24 00:12] LABS: URINE MUCUS RARE
[2016-06-24] MEDS: D5-1/2NS+20 MEQ KCL - 1,000 ML IV SCH ×2 (02:05→13:34)
[2016-06-24] MEDS: ALBUTEROL SO4 2.5/IPRATROPIUM 0.5 INH SOL 3 ML VIAL.NEB. NEB SCH ×4 (05:57→17:00)
[2016-06-24] MEDS: DOCUSATE SODIUM 100 MG CAPSULE (FP) PO SCH ×3 (06:03→21:06)
[2016-06-24] MEDS: diazePAM 5 MG TABLET PO SCH ×3 (06:03→21:06)
[2016-06-24] MEDS: INSULIN SLIDING SCALE (NOVOLOG) 1 VIAL SQ SCH ×5 (06:05→21:08)
[2016-06-24] MEDS ORDERED: INSULIN (NOVOLOG) ASPART 100 UNITS/ML 10ML VIAL ONE ×2 (06:36→21:08)
[2016-06-24] MEDS: HYDROmorphone *PCA* 10MG/50ML DISP.SYRIN PCA SCH ×2 (07:30→13:06)
[2016-06-24 08:36] LABS: BASOPHIL 0.4 % (0-2.0); MCH 27.9 pg (25.7-33.7); MCHC 32.3 g/dl (32.0-36.0); MEAN CELL VOLUME 86.4 fl (80-96); MEAN PLT VOLUME 8.7 fl (7.5-11.1); NEUTROPHILS 68.4 % (42.8-82.8); PLATELET COUNT 179 K/MM3 (134-434); RDW 13.9 % (11.6-15.6); WHITE BLOOD COUNT 20.1 K/mm3 (4.0-10.0)
[2016-06-24 09:38] LABS: ALBUMIN 2.5 g/dl (3.4-5.0); BILIRUBIN,TOTAL 0.5 mg/dL (0.2-1.0); CALCIUM 7.9 mg/dL (8.5-10.1); CREATININE 1.3 mg/dL (0.55-1.02); TOT PROT 5.3 g/dl (6.4-8.2)
--- NOTE | 2016-06-24 09:39 | PN ---
Progress Note (short form) - Note Progress Note: NEUROSURGERY POD #3 Appreciate medical and ID input- care d/e Dr Coreas and Dr. Kraus Incisional pain; + nausea Tmax 99.4 now 98.8 Sleepy, easily arousable Dressing with small amount of drainage near shirley Moving B UE 4+; B IP 4+; B PF/DF 4+ pain limited Sensation grossly intact On TEARER and valium for pain and muscle spasm LS spine x-rays- satisfactory L3-S1 implant positions WBC 20.1; Hgb 8.6; Cr 1.3; BUN 20 Drain DC'd yesterday Decrease valium Incentive spirometry Medical f/u Increase HOB/OOB with brace later
[2016-06-24] MEDS ORDERED: PT OWN MED DRAWER 7, Y5N ONE ×2 (10:01→21:08)
[2016-06-24] MEDS: DOXAZOSIN MESYLATE 2 MG TABLET (FP) PO SCH ×2 (10:02→21:05)
[2016-06-24] MEDS: BUDESONIDE/FORMETEROL FUMARATE 80/4.5 mcg INHALER IH SCH ×2 (10:02→21:09)
[2016-06-24] MEDS: FUROSEMIDE 20 MG TABLET (FP) PO SCH (10:03)
[2016-06-24] MEDS: VALSARTAN 160 MG TABLET (UD) PO SCH ×2 (10:03→21:05)
[2016-06-24] MEDS: hydrALAZINE HCL 50 MG TABLET (FP) PO SCH ×2 (10:04→21:06)
[2016-06-24] MEDS: NYSTATIN POWDER 100,000 UNITS/GM - 15 GM TOPICAL POWDER TP SCH (10:04)
[2016-06-24] MEDS: PANTOPRAZOLE 40 MG TABLET (FP) PO SCH (10:05)
[2016-06-24] MEDS ORDERED: oxyCODONE HCL 5 MG TABLET PO PRN (11:35)
--- NOTE | 2016-06-24 11:35 | PN ---
Progress Note (short form) - Note Progress Note: Anesthesiology Pain Service POD#3 s/p PLIF L3-S1 with Dilaudid SUPERVISOR SEWER SYSTEM for post-op pain control. Pt. still c/o pain but states that she feels as though it may be less than before. Tolerating PO, VSS. Will d/c SUPERVISOR SEWER SYSTEM and change to PO pain meds. Further management as per Dr. Floyd.
[2016-06-24] MEDS: VANCOMYCIN 1 GRAM (PRE-DOCKED) 1,000 MG/250 ML BAG IVPB SCH (13:07)
--- NOTE | 2016-06-24 13:25 | PN ---
Progress Note, Physician History of Present Illness: 60 Y/O FEMAL S/P BACK SURGERY NOTED WITH ELEVATED CR PT C/O BACK PAIN DENIES ANY CP OR SOB - Current Medication List Current Medications: Active Medications Acetaminophen (Tylenol -) 650 mg PO Q6H PRN PRN Reason: FEVER Last Admin: 06/23/16 13:14 Dose: 650 mg Albuterol Sulfate (Ventolin Hfa Inhaler -) 1 puff IH QID PRN PRN Reason: Wheezing-SOB Albuterol Sulfate (Ventolin Hfa Inhaler -) 2 puff IH QID PRN PRN Reason: WHEEZING/SOB Albuterol Sulfate (Ventolin 0.083% Nebulizer Soln -) 1 amp NEB Q4H PRN PRN Reason: SHORT OF BREATH/WHEEZING Last Admin: 06/23/16 08:07 Dose: 1 amp Albuterol/Ipratropium (Duoneb -) 1 amp NEB QIDR [facility] Last Admin: 06/24/16 11:33 Dose: 1 amp Bisacodyl (Dulcolax Suppository -) 10 mg RC DAILY PRN PRN Reason: CONSTIPATION Budesonide/Formoterol Fumarate (Symbicort 80/4.5mcg -) 2 puff IH BID [facility] Last Admin: 06/24/16 10:02 Dose: 2 puff Diazepam (Valium -) 5 mg PO TID [facility] Diphenhydramine HCl (Benadryl Injection -) 12.5 mg IVPUSH ONCE PRN PRN Reason: FOR ITCHING Docusate Sodium (Colace -) 100 mg PO TID [facility] Last Admin: 06/24/16 06:03 Dose: 100 mg Doxazosin Mesylate (Cardura -) 8 mg PO BID [facility] Last Admin: 06/24/16 10:02 Dose: 8 mg Furosemide (Lasix -) 20 mg PO DAILY [facility] Last Admin: 06/24/16 10:03 Dose: 20 mg Hydralazine HCl (Apresoline -) 50 mg PO BID [facility] Last Admin: 06/24/16 10:04 Dose: 50 mg Potassium Chloride/Dextrose/Sod Cl (D5-1/2ns+20 Meq Kcl -) 1,000 mls @ 100 mls/ hr IV ASDIR [facility] Last Admin: 06/24/16 02:05 Dose: 100 mls/hr Potassium Chloride/Dextrose/Sod Cl (D5-1/2ns+20 Meq Kcl -) 1,000 mls @ 42 mls/ hr IV ASDIR [facility] Insulin Aspart (Novolog Vial Sliding Scale -) 1 vial SQ ACHS [facility] PRN Reason: Protocol Last Admin: 06/24/16 11:31 Dose: Not Given Montelukast Sodium (Singulair -) 10 mg PO HS [facility] Last Admin: 06/23/16 21:40 Dose: 10 mg Nystatin (Nystop Powder -) 1 applic TP DAILY [facility] Last Admin: 06/24/16 10:04 Dose: 1 applic Ondansetron HCl (Zofran Injection) 4 mg IVPB Q6H PRN PRN Reason: NAUSEA AND/OR VOMITING Oxycodone HCl (Oxycontin -) 10 mg PO BID [facility] Stop: 06/27/16 11:36 Oxycodone HCl (Roxicodone -) 5 mg PO Q4H PRN PRN Reason: PAIN Stop: 06/27/16 11:36 Oxycodone HCl (Roxicodone -) 10 mg PO Q4H PRN PRN Reason: PAIN Stop: 06/27/16 11:36 Pantoprazole Sodium (Protonix -) 40 mg PO DAILY [facility] Last Admin: 06/24/16 10:05 Dose: 40 mg Valsartan (Diovan -) 160 mg PO BID [facility] Last Admin: 06/24/16 10:03 Dose: 160 mg - Objective Vital Signs: Vital Signs Temperature 99 F 06/24/16 10:00 Pulse Rate 98 H 06/24/16 10:00 Respiratory Rate 18 06/24/16 10:00 Blood Pressure 122/68 06/24/16 10:00 O2 Sat by Pulse Oximetry (%) 95 06/23/16 21:00 Cardiovascular: Yes: Tachycardia, S1, S2 Respiratory: Yes: Regular, CTA Bilaterally Gastrointestinal: Yes: Normal Bowel Sounds, Soft Peripheral Pulses WNL: No Labs: CBC, BMP 06/24/16 07:50 06/24/16 07:50 Problem List - Problems (1) Diabetes Assessment/Plan: BGM COVERAGE Code(s): E11.9 - TYPE 2 DIABETES MELLITUS WITHOUT COMPLICATIONS Qualifiers: Diabetes mellitus type: type 2 (2) HTN (hypertension) Assessment/Plan: MONITOR BP Code(s): I10 - ESSENTIAL (PRIMARY) HYPERTENSION Qualifiers: Hypertension type: essential hypertension Qualified Code(s): I10 - Essential (primary) hypertension (3) Fever Assessment/Plan: INCENTIVE SPIROMETRY MONITOR TEMPS ID Code(s): R50.9 - FEVER, UNSPECIFIED (4) Leukocytosis Assessment/Plan: H/O MPS--THIS IS HIGHER THAN BASELINE FOLLOW LABS CULTURES ID Laboratory Tests 06/23/16 06/24/16 08:28 07:50 WBC 23.7 H 20.1 H Code(s): D72.829 - ELEVATED WHITE BLOOD CELL COUNT, UNSPECIFIED (5) Anemia Assessment/Plan: MONITOR --S/P TRANSFUSION Laboratory Tests 06/23/16 06/24/16 08:28 07:50 Hgb 8.5 L 8.4 L Code(s): D64.9 - ANEMIA, UNSPECIFIED (6) Renal insufficiency syndrome Assessment/Plan: IMPROVING MONITOR Laboratory Tests 06/23/16 06/24/16 08:28 07:50 Creatinine 1.6 H 1.3 H D Code(s): N28.9 - DISORDER OF KIDNEY AND URETER, UNSPECIFIED
--- NOTE | 2016-06-24 15:48 | PN ---
Progress Note (short form) - Note Progress Note: no fever received blood transfusion last night biotech production specialist pump d/shelia c/o pain from enriquez Vital Signs Period Temp Pulse Resp BP Sys/Fernandes Pulse Ox Last 24 Hr 98 F-99.2 F 91-108 15-22 108-153/50-88 95 cor-rrr llungs clear abd soft,nt ext no edema CBC, BMP 06/24/16 07:50 06/24/16 07:50 Microbiology 06/23/16 11:30 Blood - Peripheral Venous Blood Culture - Preliminary NO GROWTH OBTAINED AFTER 24 HOURS, INCUBATION TO CONTINUE FOR 4 DAYS. 06/23/16 11:35 Blood - Peripheral Venous Blood Culture - Preliminary NO GROWTH OBTAINED AFTER 24 HOURS, INCUBATION TO CONTINUE FOR 4 DAYS. a/p pod #3 s/p laminectomy- fevers appear to have resolved would observe off antibiotics if fevers obtain blood cultures and start vanco/azactam consider d/c enriquez- she is very uncomfortable
[2016-06-24] MEDS: oxyCODONE HCL 5 MG TABLET PO PRN (18:30)
[2016-06-24] MEDS: ACETAMINOPHEN 325 MG TABLET (FP) PO PRN (18:49)
[2016-06-24] MEDS: VANCOMYCIN 1,500 MG in DEXTROSE 5%-WATER - 500 ML IVPB SCH (20:27)
[2016-06-24] MEDS: oxyCODONE HCL 10 MG SUSTAINED ACTING TABLET PO SCH (21:06)
[2016-06-24] MEDS: MONTELUKAST NA 10 MG TABLET PO SCH (21:06)
[2016-06-25] MEDS: ALBUTEROL SO4 2.5/IPRATROPIUM 0.5 INH SOL 3 ML VIAL.NEB. NEB SCH ×4 (00:10→18:26)
[2016-06-25] MEDS: oxyCODONE HCL 5 MG TABLET PO PRN ×3 (00:15→17:44)
[2016-06-25] MEDS: D5-1/2NS+20 MEQ KCL - 1,000 ML IV SCH ×3 (01:00→17:05)
[2016-06-25] MEDS: diazePAM 5 MG TABLET PO SCH ×3 (05:49→21:36)
[2016-06-25] MEDS: DOCUSATE SODIUM 100 MG CAPSULE (FP) PO SCH ×3 (05:49→21:37)
[2016-06-25] MEDS: INSULIN SLIDING SCALE (NOVOLOG) 1 VIAL SQ SCH ×4 (06:23→21:44)
[2016-06-25 08:39] LABS: BASOPHIL 0.6 % (0-2.0); EOSINOPHIL 3.6 % (0-4.5); MCH 28.1 pg (25.7-33.7); MCHC 32.6 g/dl (32.0-36.0); MEAN CELL VOLUME 86.3 fl (80-96); NEUTROPHILS 65.9 % (42.8-82.8); PLATELET COUNT 212 K/MM3 (134-434); RDW 13.8 % (11.6-15.6); WHITE BLOOD COUNT 19.2 K/mm3 (4.0-10.0)
[2016-06-25 09:07] LABS: ALBUMIN 2.5 g/dl (3.4-5.0); CALCIUM 8.2 mg/dL (8.5-10.1)
[2016-06-25 09:12] LABS: BILIRUBIN,TOTAL 0.6 mg/dL (0.2-1.0); TOT PROT 5.7 g/dl (6.4-8.2)
--- NOTE | 2016-06-25 10:08 | PN ---
Progress Note (short form) - Note Progress Note: NEUROSURGERY POD #4 Appreciate medical and ID f/u Incisional pain No BM yest Tmax 98.7 VSS Sleepy, easily arousable CV-RR; Lungs-CTA B; Abd- + Bs, obese, mildly distended; Ext- no sign of DVT Dressing with mp significant drainage Moving B UE 4+; B IP 4+; B PF/DF 4+ pain limited Sensation grossly intact WBC 19.2, Hgb 8.2 (WEBC not unsual given h/o splenectomy) Off GRINDING MACHINE TENDER , on oxycodone LS spine x-rays- satisfactory L3-S1 implant positions Decrease narcotic pain meds Incentive spirometry Medical f/u Increase HOB/OOB with brace SQ heparin PT
[2016-06-25] MEDS ORDERED: PT OWN MED DRAWER 7, Y5N ONE ×3 (10:10→21:30)
[2016-06-25] MEDS: DOXAZOSIN MESYLATE 2 MG TABLET (FP) PO SCH ×2 (10:15→21:35)
[2016-06-25] MEDS: VALSARTAN 160 MG TABLET (UD) PO SCH ×2 (10:15→21:36)
[2016-06-25] MEDS: hydrALAZINE HCL 50 MG TABLET (FP) PO SCH ×2 (10:15→21:36)
[2016-06-25] MEDS: PANTOPRAZOLE 40 MG TABLET (FP) PO SCH (10:15)
[2016-06-25] MEDS: AZTREONAM 2 GM in DEXTROSE 5%-WATER - 100 ML IV SCH ×2 (10:15→17:05)
[2016-06-25] MEDS: FUROSEMIDE 20 MG TABLET (FP) PO SCH (10:15)
[2016-06-25] MEDS: oxyCODONE HCL 10 MG SUSTAINED ACTING TABLET PO SCH ×2 (10:19→21:36)
[2016-06-25] MEDS: BUDESONIDE/FORMETEROL FUMARATE 80/4.5 mcg INHALER IH SCH ×2 (10:19→21:37)
[2016-06-25] MEDS: HEPARIN NA (PORCINE) 5,000 UNITS/ML 1ML VIAL SQ SCH ×2 (10:19→21:37)
[2016-06-25] MEDS: NYSTATIN POWDER 100,000 UNITS/GM - 15 GM TOPICAL POWDER TP SCH (10:19)
[2016-06-25] MEDS ORDERED: MAGNESIUM CITRATE 300 ML BOTTLE PO ONE ×3 (10:26→12:15)
--- NOTE | 2016-06-25 10:33 | PN ---
Progress Note, Physician History of Present Illness: 60 Y/O FEMALE S/P BACK SURGERY PT C/O BACK PAIN DENIES ANY CP OR SOB LETHARGY FROM PAIN MEDS - Current Medication List Current Medications: Active Medications Acetaminophen (Tylenol -) 650 mg PO Q6H PRN PRN Reason: FEVER Last Admin: 06/24/16 18:49 Dose: 650 mg Albuterol Sulfate (Ventolin Hfa Inhaler -) 1 puff IH QID PRN PRN Reason: Wheezing-SOB Albuterol Sulfate (Ventolin Hfa Inhaler -) 2 puff IH QID PRN PRN Reason: WHEEZING/SOB Albuterol Sulfate (Ventolin 0.083% Nebulizer Soln -) 1 amp NEB Q4H PRN PRN Reason: SHORT OF BREATH/WHEEZING Last Admin: 06/23/16 08:07 Dose: 1 amp Albuterol/Ipratropium (Duoneb -) 1 amp NEB QIDR [facility] Last Admin: 06/25/16 05:05 Dose: 1 amp Bisacodyl (Dulcolax Suppository -) 10 mg RC DAILY PRN PRN Reason: CONSTIPATION Budesonide/Formoterol Fumarate (Symbicort 80/4.5mcg -) 2 puff IH BID [facility] Last Admin: 06/25/16 10:19 Dose: 2 puff Diazepam (Valium -) 5 mg PO TID [facility] Last Admin: 06/25/16 05:49 Dose: 5 mg Diphenhydramine HCl (Benadryl Injection -) 12.5 mg IVPUSH ONCE PRN PRN Reason: FOR ITCHING Docusate Sodium (Colace -) 100 mg PO TID [facility] Last Admin: 06/25/16 05:49 Dose: 100 mg Doxazosin Mesylate (Cardura -) 8 mg PO BID [facility] Last Admin: 06/25/16 10:15 Dose: 8 mg Furosemide (Lasix -) 20 mg PO DAILY [facility] Last Admin: 06/25/16 10:15 Dose: 20 mg Heparin Sodium (Porcine) (Heparin -) 5,000 unit SQ BID [facility] Last Admin: 06/25/16 10:19 Dose: 5,000 unit Hydralazine HCl (Apresoline -) 50 mg PO BID [facility] Last Admin: 06/25/16 10:15 Dose: 50 mg Potassium Chloride/Dextrose/Sod Cl (D5-1/2ns+20 Meq Kcl -) 1,000 mls @ 100 mls/ hr IV ASDIR [facility] Last Admin: 06/25/16 10:22 Dose: 100 mls/hr Potassium Chloride/Dextrose/Sod Cl (D5-1/2ns+20 Meq Kcl -) 1,000 mls @ 42 mls/ hr IV ASDIR [facility] Vancomycin HCl 1,500 mg/ (Dextrose) 500 mls @ 250 mls/hr IVPB Q24H [facility] PRN Reason: Protocol Last Admin: 06/24/16 20:27 Dose: 250 mls/hr Aztreonam 2 gm/ Dextrose 100 mls @ 100 mls/hr IV Q8H-IV [facility] PRN Reason: Protocol Last Admin: 06/25/16 10:15 Dose: 100 mls/hr Insulin Aspart (Novolog Vial Sliding Scale -) 1 vial SQ ACHS [facility] PRN Reason: Protocol Last Admin: 06/25/16 06:23 Dose: Not Given Magnesium Citrate (Citroma -) 300 ml PO ONCE ONE Stop: 06/25/16 10:27 Montelukast Sodium (Singulair -) 10 mg PO HS [facility] Last Admin: 06/24/16 21:06 Dose: 10 mg Nystatin (Nystop Powder -) 1 applic TP DAILY [facility] Last Admin: 06/25/16 10:19 Dose: 1 applic Ondansetron HCl (Zofran Injection) 4 mg IVPB Q6H PRN PRN Reason: NAUSEA AND/OR VOMITING Oxycodone HCl (Oxycontin -) 10 mg PO BID [facility] Stop: 06/27/16 11:36 Last Admin: 06/25/16 10:19 Dose: 10 mg Oxycodone HCl (Roxicodone -) 5 mg PO Q4H PRN PRN Reason: PAIN Stop: 06/27/16 11:36 Last Admin: 06/24/16 13:30 Dose: 5 mg Oxycodone HCl (Roxicodone -) 10 mg PO Q4H PRN PRN Reason: PAIN Stop: 06/27/16 11:36 Last Admin: 06/25/16 05:49 Dose: 10 mg Pantoprazole Sodium (Protonix -) 40 mg PO DAILY [facility] Last Admin: 06/25/16 10:15 Dose: 40 mg Valsartan (Diovan -) 160 mg PO BID [facility] Last Admin: 06/25/16 10:15 Dose: 160 mg - Objective Vital Signs: Vital Signs Temperature 98.2 F 06/25/16 10:13 Pulse Rate 84 06/25/16 10:13 Respiratory Rate 19 06/25/16 10:13 Blood Pressure 145/72 06/25/16 10:13 O2 Sat by Pulse Oximetry (%) 96 06/24/16 21:00 Cardiovascular: Yes: Regular Rate and Rhythm Respiratory: Yes: Regular, CTA Bilaterally Gastrointestinal: Yes: Normal Bowel Sounds, Soft Edema: No Labs: CBC, BMP 06/25/16 06:00 06/25/16 06:00 Problem List - Problems (1) Diabetes Assessment/Plan: [facility] COVERAGE Code(s): E11.9 - TYPE 2 DIABETES MELLITUS WITHOUT COMPLICATIONS Qualifiers: Diabetes mellitus type: type 2 (2) HTN (hypertension) Assessment/Plan: MONITOR BP Code(s): I10 - ESSENTIAL (PRIMARY) HYPERTENSION Qualifiers: Hypertension type: essential hypertension Qualified Code(s): I10 - Essential (primary) hypertension (3) Fever Assessment/Plan: RESOLVED INCENTIVE SPIROMETRY MONITOR TEMPS ID Code(s): R50.9 - FEVER, UNSPECIFIED (4) Leukocytosis Assessment/Plan: H/O MPS--THIS IS HIGHER THAN BASELINE FOLLOW LABS CULTURES ID Laboratory Tests 06/23/16 06/24/16 08:28 07:50 WBC 23.7 H 20.1 H Code(s): D72.829 - ELEVATED WHITE BLOOD CELL COUNT, UNSPECIFIED (5) Anemia Assessment/Plan: MONITOR --S/P TRANSFUSION CBC WBC 19.2 K/mm3 (4.0-10.0) H 06/25/16 06:00 RBC 2.93 M/mm3 (3.60-5.2) L 06/25/16 06:00 Hgb 8.2 GM/dL (10.7-15.3) L 06/25/16 06:00 Hct 25.3 % (32.4-45.2) L 06/25/16 06:00 MCV 86.3 fl (80-96) 06/25/16 06:00 MCHC 32.6 g/dl (32.0-36.0) 06/25/16 06:00 RDW 13.8 % (11.6-15.6) 06/25/16 06:00 Plt Count 212 K/MM3 (134-434) 06/25/16 06:00 MPV 9.0 fl (7.5-11.1) 06/25/16 06:00 Neutrophils % 65.9 % (42.8-82.8) 06/25/16 06:00 Lymphocytes % 18.0 % (8-40) 06/25/16 06:00 Monocytes % 11.9 % (3.8-10.2) H 06/25/16 06:00 Eosinophils % 3.6 % (0-4.5) D 06/25/16 06:00 Basophils % 0.6 % (0-2.0) 06/25/16 06:00 Band Neutrophils 3.0 % (0-10) D 06/21/16 18:00 Differential Comment Manual diff done 06/23/16 08:28 Platelet Estimate Adequate (NORMAL) 06/23/16 08:28 RBC Morphology Appears normal 06/21/16 18:00 Code(s): D64.9 - ANEMIA, UNSPECIFIED (6) Renal insufficiency syndrome Assessment/Plan: IMPROVING MONITOR Laboratory Tests 06/23/16 06/24/16 08:28 07:50 Creatinine 1.6 H 1.3 H D Code(s): N28.9 - DISORDER OF KIDNEY AND URETER, UNSPECIFIED (7) Status post lumbar spine surgery for decompression of spinal cord Assessment/Plan: PER NS CUT DOWN ON PAIN MEDS Code(s): Z98.890 - OTHER SPECIFIED POSTPROCEDURAL STATES
[2016-06-25] MEDS ORDERED: INSULIN (NOVOLOG) ASPART 100 UNITS/ML 10ML VIAL ONE (11:44)
--- NOTE | 2016-06-25 13:50 | PN ---
Progress Note (short form) - Note Progress Note: feels better febrile yesterday vanco/azactam started after cultures were sent enriquez out Vital Signs Period Temp Pulse Resp BP Sys/Fernandes Pulse Ox Last 24 Hr 97.9 F-101.7 F 84-108 19-20 129-148/71-88 96 cor-rrr lungs decreased bs at bases abd soft,nt ext no edema CBC, BMP 06/25/16 06:00 06/25/16 06:00 Microbiology 06/23/16 11:30 Blood - Peripheral Venous Blood Culture - Preliminary NO GROWTH OBTAINED AFTER 48 HOURS, INCUBATION TO CONTINUE FOR 3 DAYS. 06/23/16 11:35 Blood - Peripheral Venous Blood Culture - Preliminary NO GROWTH OBTAINED AFTER 48 HOURS, INCUBATION TO CONTINUE FOR 3 DAYS. 06/23/16 16:00 Urine - Urine Enriquez Urine Culture - Final NO GROWTH OBTAINED a/p fevers s/p laminectomy pod #4 history of splenectomy encouraged incentive spirometry continue vanco/azactam pending culture results enriquez out
[2016-06-25] MEDS ORDERED: MAGNESIUM CITRATE 300 ML BOTTLE PO PRN (14:30)
[2016-06-25] MEDS: VANCOMYCIN 1,500 MG in DEXTROSE 5%-WATER - 500 ML IVPB SCH (17:05)
[2016-06-25] MEDS: MONTELUKAST NA 10 MG TABLET PO SCH (21:36)
[2016-06-26] MEDS: D5-1/2NS+20 MEQ KCL - 1,000 ML IV SCH (01:17)
[2016-06-26] MEDS ORDERED: PT OWN MED DRAWER 7, Y5N ONE ×2 (01:23→09:16)
[2016-06-26] MEDS: AZTREONAM 2 GM in DEXTROSE 5%-WATER - 100 ML IV SCH ×3 (01:25→19:22)
[2016-06-26] MEDS: oxyCODONE HCL 5 MG TABLET PO PRN ×2 (01:26→14:45)
[2016-06-26] MEDS: ACETAMINOPHEN 325 MG TABLET (FP) PO PRN ×2 (01:26→14:45)
[2016-06-26] MEDS: diazePAM 5 MG TABLET PO SCH ×3 (06:01→21:12)
[2016-06-26] MEDS: DOCUSATE SODIUM 100 MG CAPSULE (FP) PO SCH ×3 (06:01→21:11)
[2016-06-26] MEDS: INSULIN SLIDING SCALE (NOVOLOG) 1 VIAL SQ SCH ×4 (06:30→21:15)
[2016-06-26] MEDS: ALBUTEROL SO4 2.5/IPRATROPIUM 0.5 INH SOL 3 ML VIAL.NEB. NEB SCH ×5 (06:40→23:33)
--- NOTE | 2016-06-26 08:07 | PN ---
Progress Note (short form) - Note Progress Note: NEUROSURGERY POD #5 Appreciate medical and ID f/u Incisional pain AF, VSS More awake CV-RR; Lungs-CTA B; Abd- + Bs, obese, mildly distended; Ext- no sign of DVT Dressing with mild drainage near top Moving B UE 4+; B IP 4+; B PF/DF 4+ pain limited Sensation grossly intact WBC 19.2, Hgb 8.2 Blood culture and urine culture negative to date Off [employer] , on oxycodone Decrease narcotic pain meds Incentive spirometry On iv abx Vanco and Aztreonam per ID Medical f/u PT/OOB with brace SQ heparin for DVT prophylaxis PT
[2016-06-26] MEDS: PANTOPRAZOLE 40 MG TABLET (FP) PO SCH (09:38)
[2016-06-26] MEDS: VALSARTAN 160 MG TABLET (UD) PO SCH ×2 (09:38→21:12)
[2016-06-26] MEDS: oxyCODONE HCL 10 MG SUSTAINED ACTING TABLET PO SCH ×2 (09:38→21:11)
[2016-06-26] MEDS: HEPARIN NA (PORCINE) 5,000 UNITS/ML 1ML VIAL SQ SCH ×2 (09:38→21:12)
[2016-06-26] MEDS: hydrALAZINE HCL 50 MG TABLET (FP) PO SCH ×2 (09:38→21:12)
[2016-06-26] MEDS: FUROSEMIDE 20 MG TABLET (FP) PO SCH (09:38)
[2016-06-26] MEDS: BUDESONIDE/FORMETEROL FUMARATE 80/4.5 mcg INHALER IH SCH ×2 (09:39→21:23)
[2016-06-26] MEDS: DOXAZOSIN MESYLATE 2 MG TABLET (FP) PO SCH ×2 (11:17→21:12)
[2016-06-26] MEDS: NYSTATIN POWDER 100,000 UNITS/GM - 15 GM TOPICAL POWDER TP SCH (11:26)
[2016-06-26] MEDS ORDERED: INSULIN (NOVOLOG) ASPART 100 UNITS/ML 10ML VIAL ONE (11:56)
--- NOTE | 2016-06-26 14:40 | PN ---
Progress Note, Physician Chief Complaint: ID Vancomycin and Aztreonam Afebrile - Current Medication List Current Medications: Active Medications Acetaminophen (Tylenol -) 650 mg PO Q6H PRN PRN Reason: FEVER Last Admin: 06/26/16 01:26 Dose: 650 mg Albuterol Sulfate (Ventolin Hfa Inhaler -) 1 puff IH QID PRN PRN Reason: Wheezing-SOB Albuterol Sulfate (Ventolin Hfa Inhaler -) 2 puff IH QID PRN PRN Reason: WHEEZING/SOB Albuterol Sulfate (Ventolin 0.083% Nebulizer Soln -) 1 amp NEB Q4H PRN PRN Reason: SHORT OF BREATH/WHEEZING Last Admin: 06/23/16 08:07 Dose: 1 amp Albuterol/Ipratropium (Duoneb -) 1 amp NEB QIDR [facility] Last Admin: 06/26/16 11:38 Dose: 1 amp Bisacodyl (Dulcolax Suppository -) 10 mg RC DAILY PRN PRN Reason: CONSTIPATION Budesonide/Formoterol Fumarate (Symbicort 80/4.5mcg -) 2 puff IH BID [facility] Last Admin: 06/26/16 09:39 Dose: 2 puff Diazepam (Valium -) 5 mg PO TID [facility] Last Admin: 06/26/16 06:01 Dose: 5 mg Diphenhydramine HCl (Benadryl Injection -) 12.5 mg IVPUSH ONCE PRN PRN Reason: FOR ITCHING Docusate Sodium (Colace -) 100 mg PO TID [facility] Last Admin: 06/26/16 06:01 Dose: 100 mg Doxazosin Mesylate (Cardura -) 8 mg PO BID [facility] Last Admin: 06/26/16 11:17 Dose: 8 mg Furosemide (Lasix -) 20 mg PO DAILY [facility] Last Admin: 06/26/16 09:38 Dose: 20 mg Heparin Sodium (Porcine) (Heparin -) 5,000 unit SQ BID [facility] Last Admin: 06/26/16 09:38 Dose: 5,000 unit Hydralazine HCl (Apresoline -) 50 mg PO BID [facility] Last Admin: 06/26/16 09:38 Dose: 50 mg Potassium Chloride/Dextrose/Sod Cl (D5-1/2ns+20 Meq Kcl -) 1,000 mls @ 100 mls/ hr IV ASDIR [facility] Last Admin: 06/26/16 01:17 Dose: 100 mls/hr Potassium Chloride/Dextrose/Sod Cl (D5-1/2ns+20 Meq Kcl -) 1,000 mls @ 42 mls/ hr IV ASDIR AL[facility] Vancomycin HCl 1,500 mg/ (Dextrose) 500 mls @ 250 mls/hr IVPB Q24H [facility] PRN Reason: Protocol Last Admin: 06/25/16 17:05 Dose: 250 mls/hr Aztreonam 2 gm/ Dextrose 100 mls @ 100 mls/hr IV Q8H-IV [facility] PRN Reason: Protocol Last Admin: 06/26/16 10:02 Dose: 100 mls/hr Insulin Aspart (Novolog Vial Sliding Scale -) 1 vial SQ ACHS [facility] PRN Reason: Protocol Last Admin: 06/26/16 11:59 Dose: 2 units Magnesium Citrate (Citroma -) 150 ml PO ONCE PRN Montelukast Sodium (Singulair -) 10 mg PO HS [facility] Last Admin: 06/25/16 21:36 Dose: 10 mg Nystatin (Nystop Powder -) 1 applic TP DAILY [facility] Last Admin: 06/26/16 11:26 Dose: 1 applic Ondansetron HCl (Zofran Injection) 4 mg IVPB Q6H PRN PRN Reason: NAUSEA AND/OR VOMITING Oxycodone HCl (Oxycontin -) 10 mg PO BID [facility] Stop: 06/27/16 11:36 Last Admin: 06/26/16 09:38 Dose: 10 mg Oxycodone HCl (Roxicodone -) 5 mg PO Q4H PRN PRN Reason: PAIN Stop: 06/27/16 11:36 Last Admin: 06/24/16 13:30 Dose: 5 mg Oxycodone HCl (Roxicodone -) 10 mg PO Q4H PRN PRN Reason: PAIN Stop: 06/27/16 11:36 Last Admin: 06/26/16 01:26 Dose: 10 mg Pantoprazole Sodium (Protonix -) 40 mg PO DAILY [facility] Last Admin: 06/26/16 09:38 Dose: 40 mg Valsartan (Diovan -) 160 mg PO BID [facility] Last Admin: 06/26/16 09:38 Dose: 160 mg - Objective Vital Signs: Vital Signs Temperature 98 F 06/26/16 09:48 Pulse Rate 96 H 06/26/16 09:48 Respiratory Rate 20 06/26/16 09:48 Blood Pressure 151/73 06/26/16 09:48 O2 Sat by Pulse Oximetry (%) 95 06/26/16 09:00 Constitutional: Yes: Well Nourished, No Distress Eyes: Yes: WNL, Conjunctiva Clear HENT: Yes: WNL, Atraumatic Neck: Yes: WNL, Supple Cardiovascular: Yes: S1, S2 Respiratory: Yes: WNL, Regular, CTA Bilaterally Gastrointestinal: Yes: Soft. No: Tenderness Edema: No Labs: CBC, BMP 06/25/16 06:00 06/25/16 06:00 Problem List - Problems (1) Diabetes mellitus, insulin dependent (IDDM), uncontrolled Code(s): E10.65 - TYPE 1 DIABETES MELLITUS WITH HYPERGLYCEMIA (2) History of cervical spinal surgery Code(s): Z98.890 - OTHER SPECIFIED POSTPROCEDURAL STATES (3) Fever 106 degrees F or over Code(s): R50.9 - FEVER, UNSPECIFIED Assessment/Plan Microbiology 06/23/16 16:00 Urine - Urine Enriquez Urine Culture - Final NO GROWTH OBTAINED 06/24/16 18:45 Blood - Peripheral Venous Blood Culture - Preliminary NO GROWTH OBTAINED AFTER 24 HOURS, INCUBATION TO CONTINUE FOR 4 DAYS. 06/24/16 18:45 Blood - Peripheral Venous Blood Culture - Preliminary NO GROWTH OBTAINED AFTER 24 HOURS, INCUBATION TO CONTINUE FOR 4 DAYS. 06/23/16 11:35 Blood - Peripheral Venous Blood Culture - Preliminary NO GROWTH OBTAINED AFTER 72 HOURS, INCUBATION TO CONTINUE FOR 2 DAYS. 06/23/16 11:30 Blood - Peripheral Venous Blood Culture - Preliminary NO GROWTH OBTAINED AFTER 72 HOURS, INCUBATION TO CONTINUE FOR 2 DAYS. Laboratory Tests 06/25/16 06/25/16 06:00 06:00 WBC 19.2 H Hct 25.3 L BUN 17 Creatinine 1.0 D Assessment Post lumbar surgery Post op fever resolved Not sure if this was due to antibiotics as no obvious source Had enriquez removed Splenectomy WBC count elevation Plan Am inclined to stop antibiotics in am and observe off therapy Efra ROWLAND
[2016-06-26] MEDS: VANCOMYCIN 1,500 MG in DEXTROSE 5%-WATER - 500 ML IVPB SCH (20:30)
[2016-06-26] MEDS: MONTELUKAST NA 10 MG TABLET PO SCH (21:12)
[2016-06-27] MEDS: oxyCODONE HCL 5 MG TABLET PO PRN (01:14)
[2016-06-27] MEDS: AZTREONAM 2 GM in DEXTROSE 5%-WATER - 100 ML IV SCH ×2 (01:16→10:25)
[2016-06-27] MEDS: ALBUTEROL SO4 2.5/IPRATROPIUM 0.5 INH SOL 3 ML VIAL.NEB. NEB SCH ×4 (06:03→23:33)
[2016-06-27] MEDS: D5-1/2NS+20 MEQ KCL - 1,000 ML IV SCH ×3 (06:07→18:31)
[2016-06-27] MEDS: diazePAM 5 MG TABLET PO SCH ×3 (06:08→21:24)
[2016-06-27] MEDS: DOCUSATE SODIUM 100 MG CAPSULE (FP) PO SCH ×3 (06:08→21:24)
[2016-06-27] MEDS: INSULIN SLIDING SCALE (NOVOLOG) 1 VIAL SQ SCH ×4 (06:09→21:25)
--- NOTE | 2016-06-27 07:52 | PN ---
Progress Note (short form) - Note Progress Note: NEUROSURGERY POD #6 Appreciate medical and ID input Pain posterior thighs Tmax 98.5, AF, VSS More awake CV-RR; Lungs-CTA B; Abd- + Bs, obese, mildly distended; Ext- no sign of DVT Dressing with some drainage near top- dressing changed Moving B UE 4+; B IP 4+; B PF/DF 4+ pain limited Sensation grossly intact FS 150's Blood culture and urine culture negative to date Decrease narcotic pain meds Incentive spirometry On iv abx Vanco and Aztreonam per ID PT/OOB with brace SQ heparin for DVT prophylaxis Add Neurontin PT
--- NOTE | 2016-06-27 09:07 | PN ---
Progress Note, Physician History of Present Illness: 60 Y/O FEMALE S/P BACK SURGERY PT C/O BACK PAIN DENIES ANY CP OR SOB C/O CONSTIPATION - Current Medication List Current Medications: Active Medications Acetaminophen (Tylenol -) 650 mg PO Q6H PRN PRN Reason: FEVER Last Admin: 06/26/16 14:45 Dose: 650 mg Albuterol Sulfate (Ventolin Hfa Inhaler -) 1 puff IH QID PRN PRN Reason: Wheezing-SOB Albuterol Sulfate (Ventolin Hfa Inhaler -) 2 puff IH QID PRN PRN Reason: WHEEZING/SOB Albuterol Sulfate (Ventolin 0.083% Nebulizer Soln -) 1 amp NEB Q4H PRN PRN Reason: SHORT OF BREATH/WHEEZING Last Admin: 06/23/16 08:07 Dose: 1 amp Albuterol/Ipratropium (Duoneb -) 1 amp NEB QIDR [facility] Last Admin: 06/27/16 06:03 Dose: 1 amp Bisacodyl (Dulcolax Suppository -) 10 mg RC DAILY PRN PRN Reason: CONSTIPATION Bisacodyl (Dulcolax -) 10 mg PO ONCE ONE Stop: 06/27/16 09:07 Budesonide/Formoterol Fumarate (Symbicort 80/4.5mcg -) 2 puff IH BID [facility] Last Admin: 06/26/16 21:23 Dose: 2 puff Diazepam (Valium -) 5 mg PO TID [facility] Last Admin: 06/27/16 06:08 Dose: 5 mg Diphenhydramine HCl (Benadryl Injection -) 12.5 mg IVPUSH ONCE PRN PRN Reason: FOR ITCHING Docusate Sodium (Colace -) 100 mg PO TID [facility] Last Admin: 06/27/16 06:08 Dose: 100 mg Doxazosin Mesylate (Cardura -) 8 mg PO BID [facility] Last Admin: 06/26/16 21:12 Dose: 8 mg Furosemide (Lasix -) 20 mg PO DAILY [facility] Last Admin: 06/26/16 09:38 Dose: 20 mg Gabapentin (Neurontin -) 300 mg PO TID [facility] Heparin Sodium (Porcine) (Heparin -) 5,000 unit SQ BID [facility] Last Admin: 06/26/16 21:12 Dose: 5,000 unit Hydralazine HCl (Apresoline -) 50 mg PO BID [facility] Last Admin: 06/26/16 21:12 Dose: 50 mg Potassium Chloride/Dextrose/Sod Cl (D5-1/2ns+20 Meq Kcl -) 1,000 mls @ 100 mls/ hr IV [facility]IR [facility] Last Admin: 06/27/16 06:07 Dose: 100 mls/hr Potassium Chloride/Dextrose/Sod Cl (D5-1/2ns+20 Meq Kcl -) 1,000 mls @ 42 mls/ hr IV ASDIR [facility] Vancomycin HCl 1,500 mg/ (Dextrose) 500 mls @ 250 mls/hr IVPB Q24H [facility] PRN Reason: Protocol Last Admin: 06/26/16 20:30 Dose: 250 mls/hr Aztreonam 2 gm/ Dextrose 100 mls @ 100 mls/hr IV Q8H-IV [facility] PRN Reason: Protocol Last Admin: 06/27/16 01:16 Dose: 100 mls/hr Insulin Aspart (Novolog Vial Sliding Scale -) 1 vial SQ ACHS [facility] PRN Reason: Protocol Last Admin: 06/27/16 06:09 Dose: Not Given Magnesium Citrate (Citroma -) 150 ml PO ONCE PRN Montelukast Sodium (Singulair -) 10 mg PO HS [facility] Last Admin: 06/26/16 21:12 Dose: 10 mg Nystatin (Nystop Powder -) 1 applic TP DAILY [facility] Last Admin: 06/26/16 11:26 Dose: 1 applic Ondansetron HCl (Zofran Injection) 4 mg IVPB Q6H PRN PRN Reason: NAUSEA AND/OR VOMITING Oxycodone HCl (Oxycontin -) 10 mg PO BID [facility] Stop: 06/27/16 11:36 Last Admin: 06/26/16 21:11 Dose: 10 mg Oxycodone HCl (Roxicodone -) 5 mg PO Q4H PRN PRN Reason: PAIN Stop: 06/27/16 11:36 Last Admin: 06/24/16 13:30 Dose: 5 mg Oxycodone HCl (Roxicodone -) 10 mg PO Q4H PRN PRN Reason: PAIN Stop: 06/27/16 11:36 Last Admin: 06/27/16 01:14 Dose: 10 mg Pantoprazole Sodium (Protonix -) 40 mg PO DAILY [facility] Last Admin: 06/26/16 09:38 Dose: 40 mg Polyethylene Glycol (Miralax (For Daily Use) -) 17 gm PO BID [facility] Valsartan (Diovan -) 160 mg PO BID [facility] Last Admin: 06/26/16 21:12 Dose: 160 mg - Objective Vital Signs: Vital Signs Temperature 98.5 F 06/27/16 02:02 Pulse Rate 92 H 06/27/16 02:02 Respiratory Rate 19 06/27/16 02:02 Blood Pressure 140/84 06/27/16 02:02 O2 Sat by Pulse Oximetry (%) 95 06/26/16 21:00 Cardiovascular: Yes: Regular Rate and Rhythm Respiratory: Yes: Regular, CTA Bilaterally Gastrointestinal: Yes: Normal Bowel Sounds, Soft. No: Tenderness Labs: CBC, BMP 06/25/16 06:00 06/25/16 06:00 Problem List - Problems (1) Diabetes Assessment/Plan: [facility] Code(s): E11.9 - TYPE 2 DIABETES MELLITUS WITHOUT COMPLICATIONS Qualifiers: Diabetes mellitus type: type 2 (2) HTN (hypertension) Assessment/Plan: MONITOR BP Code(s): I10 - ESSENTIAL (PRIMARY) HYPERTENSION Qualifiers: Hypertension type: essential hypertension Qualified Code(s): I10 - Essential (primary) hypertension (3) Fever Assessment/Plan: RESOLVED INCENTIVE SPIROMETRY MONITOR TEMPS ID Code(s): R50.9 - FEVER, UNSPECIFIED (4) Leukocytosis Assessment/Plan: H/O MPS--THIS IS HIGHER THAN BASELINE FOLLOW LABS CULTURES ID Laboratory Tests 06/23/16 06/24/16 08:28 07:50 WBC 23.7 H 20.1 H Code(s): D72.829 - ELEVATED WHITE BLOOD CELL COUNT, UNSPECIFIED (5) Anemia Assessment/Plan: MONITOR --S/P TRANSFUSION CBC WBC 19.2 K/mm3 (4.0-10.0) H 06/25/16 06:00 RBC 2.93 M/mm3 (3.60-5.2) L 06/25/16 06:00 Hgb 8.2 GM/dL (10.7-15.3) L 06/25/16 06:00 Hct 25.3 % (32.4-45.2) L 06/25/16 06:00 MCV 86.3 fl (80-96) 06/25/16 06:00 MCHC 32.6 g/dl (32.0-36.0) 06/25/16 06:00 RDW 13.8 % (11.6-15.6) 06/25/16 06:00 Plt Count 212 K/MM3 (134-434) 06/25/16 06:00 MPV 9.0 fl (7.5-11.1) 06/25/16 06:00 Neutrophils % 65.9 % (42.8-82.8) 06/25/16 06:00 Lymphocytes % 18.0 % (8-40) 06/25/16 06:00 Monocytes % 11.9 % (3.8-10.2) H 06/25/16 06:00 Eosinophils % 3.6 % (0-4.5) D 06/25/16 06:00 Basophils % 0.6 % (0-2.0) 06/25/16 06:00 Band Neutrophils 3.0 % (0-10) D 06/21/16 18:00 Differential Comment Manual diff done 06/23/16 08:28 Platelet Estimate Adequate (NORMAL) 06/23/16 08:28 RBC Morphology Appears normal 06/21/16 18:00 Code(s): D64.9 - ANEMIA, UNSPECIFIED (6) Renal insufficiency syndrome Assessment/Plan: IMPROVING MONITOR Laboratory Tests 06/23/16 06/24/16 08:28 07:50 Creatinine 1.6 H 1.3 H D Code(s): N28.9 - DISORDER OF KIDNEY AND URETER, UNSPECIFIED (7) Status post lumbar spine surgery for decompression of spinal cord Assessment/Plan: PER NS CUT DOWN ON PAIN MEDS Code(s): Z98.890 - OTHER SPECIFIED POSTPROCEDURAL STATES (8) Constipation Assessment/Plan: ADD MIRALAX Code(s): K59.00 - CONSTIPATION, UNSPECIFIED
[2016-06-27] MEDS ORDERED: PT OWN MED DRAWER 7, Y5N ONE (10:19)
[2016-06-27] MEDS: oxyCODONE HCL 10 MG SUSTAINED ACTING TABLET PO SCH (10:20)
[2016-06-27] MEDS: HEPARIN NA (PORCINE) 5,000 UNITS/ML 1ML VIAL SQ SCH ×2 (10:21→21:24)
[2016-06-27] MEDS: PANTOPRAZOLE 40 MG TABLET (FP) PO SCH (10:22)
[2016-06-27] MEDS: DOXAZOSIN MESYLATE 2 MG TABLET (FP) PO SCH ×2 (10:22→21:24)
[2016-06-27] MEDS: FUROSEMIDE 20 MG TABLET (FP) PO SCH (10:22)
[2016-06-27] MEDS: hydrALAZINE HCL 50 MG TABLET (FP) PO SCH ×2 (10:22→21:24)
[2016-06-27] MEDS: VALSARTAN 160 MG TABLET (UD) PO SCH ×2 (10:22→21:24)
[2016-06-27] MEDS: BUDESONIDE/FORMETEROL FUMARATE 80/4.5 mcg INHALER IH SCH ×2 (10:23→21:25)
[2016-06-27] MEDS: NYSTATIN POWDER 100,000 UNITS/GM - 15 GM TOPICAL POWDER TP SCH (10:23)
[2016-06-27] MEDS ORDERED: BISACODYL 5 MG TABLET.DR (FP) PO ONE (11:00)
[2016-06-27] MEDS: POLYETHYLENE GLYCOL 3350 119 GM BTL PO SCH ×2 (11:40→21:27)
[2016-06-27] MEDS: GABAPENTIN 300 MG CAPSULE (FP) PO SCH ×2 (14:49→21:24)
--- NOTE | 2016-06-27 14:59 | PN ---
Progress Note (short form) - Note Progress Note: no fevers oob to chair today Vital Signs Period Temp Pulse Resp BP Sys/Fernandes Pulse Ox Last 24 Hr 97.6 F-98.5 F 83-105 19-22 135-167/77-95 95-95 cor-rrr lungs decreased bs at bases abd soft,nt ext no edema dressing intact on the back CBC, BMP 06/25/16 06:00 06/25/16 06:00 Microbiology 06/23/16 11:30 Blood - Peripheral Venous Blood Culture - Preliminary NO GROWTH OBTAINED AFTER 96 HOURS, INCUBATION TO CONTINUE FOR 1 DAYS. 06/23/16 11:35 Blood - Peripheral Venous Blood Culture - Preliminary NO GROWTH OBTAINED AFTER 96 HOURS, INCUBATION TO CONTINUE FOR 1 DAYS. 06/24/16 18:45 Blood - Peripheral Venous Blood Culture - Preliminary NO GROWTH OBTAINED AFTER 48 HOURS, INCUBATION TO CONTINUE FOR 3 DAYS. 06/24/16 18:45 Blood - Peripheral Venous Blood Culture - Preliminary NO GROWTH OBTAINED AFTER 48 HOURS, INCUBATION TO CONTINUE FOR 3 DAYS. 06/23/16 16:00 Urine - Urine Meyer Urine Culture - Final NO GROWTH OBTAINED Current Medications Acetaminophen (Tylenol -) 650 mg PO Q6H PRN PRN Reason: FEVER Last Admin: 06/26/16 14:45 Dose: 650 mg Albuterol Sulfate (Ventolin Hfa Inhaler -) 1 puff IH QID PRN PRN Reason: Wheezing-SOB Albuterol Sulfate (Ventolin Hfa Inhaler -) 2 puff IH QID PRN PRN Reason: WHEEZING/SOB Albuterol/Ipratropium (Duoneb -) 1 amp NEB QIDR [facility] Last Admin: 06/27/16 12:00 Dose: 1 amp Bisacodyl (Dulcolax Suppository -) 10 mg RC DAILY PRN PRN Reason: CONSTIPATION Budesonide/Formoterol Fumarate (Symbicort 80/4.5mcg -) 2 puff IH BID [facility] Last Admin: 06/27/16 10:23 Dose: 2 puff Diazepam (Valium -) 5 mg PO TID [facility] Last Admin: 06/27/16 14:49 Dose: 5 mg Diphenhydramine HCl (Benadryl Injection -) 12.5 mg IVPUSH ONCE PRN PRN Reason: FOR ITCHING Docusate Sodium (Colace -) 100 mg PO TID [facility] Last Admin: 06/27/16 14:50 Dose: 100 mg Doxazosin Mesylate (Cardura -) 8 mg PO BID [facility] Last Admin: 06/27/16 10:22 Dose: 8 mg Furosemide (Lasix -) 20 mg PO DAILY [facility] Last Admin: 06/27/16 10:22 Dose: 20 mg Gabapentin (Neurontin -) 300 mg PO TID [facility] Last Admin: 06/27/16 14:49 Dose: 300 mg Heparin Sodium (Porcine) (Heparin -) 5,000 unit SQ BID [facility] Last Admin: 06/27/16 10:21 Dose: 5,000 unit Hydralazine HCl (Apresoline -) 50 mg PO BID [facility] Last Admin: 06/27/16 10:22 Dose: 50 mg Potassium Chloride/Dextrose/Sod Cl (D5-1/2ns+20 Meq Kcl -) 1,000 mls @ 100 mls/ hr IV ASDIR [facility] Last Admin: 06/27/16 06:07 Dose: 100 mls/hr Potassium Chloride/Dextrose/Sod Cl (D5-1/2ns+20 Meq Kcl -) 1,000 mls @ 42 mls/ hr IV ASDIR AL[facility] Vancomycin HCl 1,500 mg/ (Dextrose) 500 mls @ 250 mls/hr IVPB Q24H [facility] PRN Reason: Protocol Last Admin: 06/26/16 20:30 Dose: 250 mls/hr Aztreonam 2 gm/ Dextrose 100 mls @ 100 mls/hr IV Q8H-IV ALISE PRN Reason: Protocol Last Admin: 06/27/16 10:25 Dose: 100 mls/hr Insulin Aspart (Novolog Vial Sliding Scale -) 1 vial SQ ACHS [facility] PRN Reason: Protocol Last Admin: 06/27/16 11:37 Dose: Not Given Magnesium Citrate (Citroma -) 150 ml PO ONCE PRN Montelukast Sodium (Singulair -) 10 mg PO HS [facility] Last Admin: 06/26/16 21:12 Dose: 10 mg Nystatin (Nystop Powder -) 1 applic TP DAILY [facility] Last Admin: 06/27/16 10:23 Dose: 1 applic Ondansetron HCl (Zofran Injection) 4 mg IVPB Q6H PRN PRN Reason: NAUSEA AND/OR VOMITING Pantoprazole Sodium (Protonix -) 40 mg PO DAILY [facility] Last Admin: 06/27/16 10:22 Dose: 40 mg Polyethylene Glycol (Miralax (For Daily Use) -) 17 gm PO BID [facility] Last Admin: 06/27/16 11:40 Dose: 17 gm Valsartan (Diovan -) 160 mg PO BID [facility] Last Admin: 06/27/16 10:22 Dose: 160 mg a/p fever- resolved, cultues are negative s/p laminectomy s/p splenectomy d/w Dr Kraus we will d/c antibiotics and observe repeat cbc in am
[2016-06-27] MEDS: MONTELUKAST NA 10 MG TABLET PO SCH (21:24)
[2016-06-28] MEDS: DOCUSATE SODIUM 100 MG CAPSULE (FP) PO SCH ×3 (06:28→21:40)
[2016-06-28] MEDS: diazePAM 5 MG TABLET PO SCH ×3 (06:28→21:40)
[2016-06-28] MEDS: GABAPENTIN 300 MG CAPSULE (FP) PO SCH ×3 (06:28→21:40)
[2016-06-28] MEDS: D5-1/2NS+20 MEQ KCL - 1,000 ML IV SCH ×3 (06:28→19:00)
[2016-06-28] MEDS: ALBUTEROL SO4 2.5/IPRATROPIUM 0.5 INH SOL 3 ML VIAL.NEB. NEB SCH ×2 (06:32→11:20)
[2016-06-28] MEDS: INSULIN SLIDING SCALE (NOVOLOG) 1 VIAL SQ SCH ×4 (06:37→21:53)
[2016-06-28] MEDS: ACETAMINOPHEN 325 MG TABLET (FP) PO PRN (07:59)
[2016-06-28] MEDS: oxyCODONE HCL 5 MG TABLET PO PRN (08:01)
[2016-06-28 08:47] LABS: MCH 28.4 pg (25.7-33.7); MCHC 33.3 g/dl (32.0-36.0); MEAN CELL VOLUME 85.3 fl (80-96); MEAN PLT VOLUME 8.6 fl (7.5-11.1); PLATELET COUNT 368 K/MM3 (134-434); RDW 13.4 % (11.6-15.6); WHITE BLOOD COUNT 15.9 K/mm3 (4.0-10.0)
--- NOTE | 2016-06-28 08:58 | PN ---
Progress Note (short form) - Note Progress Note: NEUROSURGERY POD #7 Appreciate medical and ID input Pain posterior thighs Brace fits well Tmax 99.3, now 98.8, AF, VSS More awake CV-RR; Lungs-CTA B; Abd- + Bs, obese, mildly distended; Ext- no sign of DVT Dressing with some serosangrenous drainage near top- dressing changed Moving B UE 4+; B IP 4+; B PF/DF 4+ pain limited Sensation grossly intact WBC 15.9, Hgb 8.5 Blood culture and urine culture all negative to date Decrease narcotic pain meds Incentive spirometry Off iv abx per ID PT/OOB with brace SQ heparin for DVT prophylaxis [facility] consult pending On Neurontin PT
[2016-06-28] MEDS ORDERED: PT OWN MED DRAWER 7, Y5N ONE (10:00)
--- NOTE | 2016-06-28 10:17 | PN ---
Progress Note, Physician History of Present Illness: 60 Y/O FEMALE S/P BACK SURGERY PT C/O BACK PAIN DENIES ANY CP OR SOB C/O CONSTIPATION - Current Medication List Current Medications: Active Medications Acetaminophen (Tylenol -) 650 mg PO Q6H PRN PRN Reason: FEVER Last Admin: 06/28/16 07:59 Dose: 650 mg Albuterol Sulfate (Ventolin Hfa Inhaler -) 1 puff IH QID PRN PRN Reason: Wheezing-SOB Albuterol Sulfate (Ventolin Hfa Inhaler -) 2 puff IH QID PRN PRN Reason: WHEEZING/SOB Albuterol/Ipratropium (Duoneb -) 1 amp NEB QIDR [facility] Last Admin: 06/28/16 06:32 Dose: 1 amp Bisacodyl (Dulcolax Suppository -) 10 mg RC DAILY PRN PRN Reason: CONSTIPATION Budesonide/Formoterol Fumarate (Symbicort 80/4.5mcg -) 2 puff IH BID [facility] Last Admin: 06/27/16 21:25 Dose: 2 puff Diazepam (Valium -) 5 mg PO TID [facility] Last Admin: 06/28/16 06:28 Dose: 5 mg Diphenhydramine HCl (Benadryl Injection -) 12.5 mg IVPUSH ONCE PRN PRN Reason: FOR ITCHING Docusate Sodium (Colace -) 100 mg PO TID [facility] Last Admin: 06/28/16 06:28 Dose: 100 mg Doxazosin Mesylate (Cardura -) 8 mg PO BID [facility] Last Admin: 06/27/16 21:24 Dose: 8 mg Furosemide (Lasix -) 20 mg PO DAILY [facility] Last Admin: 06/27/16 10:22 Dose: 20 mg Gabapentin (Neurontin -) 300 mg PO TID [facility] Last Admin: 06/28/16 06:28 Dose: 300 mg Heparin Sodium (Porcine) (Heparin -) 5,000 unit SQ BID [facility] Last Admin: 06/27/16 21:24 Dose: 5,000 unit Hydralazine HCl (Apresoline -) 50 mg PO BID [facility] Last Admin: 06/27/16 21:24 Dose: 50 mg Potassium Chloride/Dextrose/Sod Cl (D5-1/2ns+20 Meq Kcl -) 1,000 mls @ 100 mls/ hr IV ASDIR [facility] Last Admin: 06/28/16 06:28 Dose: 100 mls/hr Potassium Chloride/Dextrose/Sod Cl (D5-1/2ns+20 Meq Kcl -) 1,000 mls @ 42 mls/ hr IV ASDIR [facility] Insulin Aspart (Novolog Vial Sliding Scale -) 1 vial SQ ACHS [facility] PRN Reason: Protocol Last Admin: 06/28/16 06:37 Dose: Not Given Magnesium Citrate (Citroma -) 150 ml PO ONCE PRN Montelukast Sodium (Singulair -) 10 mg PO HS [facility] Last Admin: 06/27/16 21:24 Dose: 10 mg Nystatin (Nystop Powder -) 1 applic TP DAILY [facility] Last Admin: 06/27/16 10:23 Dose: 1 applic Ondansetron HCl (Zofran Injection) 4 mg IVPB Q6H PRN PRN Reason: NAUSEA AND/OR VOMITING Oxycodone HCl (Roxicodone -) 10 mg PO Q4H PRN PRN Reason: PAIN Last Admin: 06/28/16 08:01 Dose: 10 mg Pantoprazole Sodium (Protonix -) 40 mg PO DAILY [facility] Last Admin: 06/27/16 10:22 Dose: 40 mg Polyethylene Glycol (Miralax (For Daily Use) -) 17 gm PO BID [facility] Last Admin: 06/27/16 21:27 Dose: 17 gm Valsartan (Diovan -) 160 mg PO BID [facility] Last Admin: 06/27/16 21:24 Dose: 160 mg - Objective Vital Signs: Vital Signs Temperature 98.8 F 06/28/16 06:36 Pulse Rate 66 06/28/16 06:36 Respiratory Rate 20 06/28/16 06:36 Blood Pressure 138/70 06/28/16 06:36 O2 Sat by Pulse Oximetry (%) 95 06/27/16 21:00 Cardiovascular: Yes: Regular Rate and Rhythm Respiratory: Yes: Regular, CTA Bilaterally Gastrointestinal: Yes: Normal Bowel Sounds, Soft Wound/Incision: Yes: Dressing Removed, Other (NO DRAINAGE) Labs: CBC, BMP 06/28/16 08:00 06/25/16 06:00 Problem List - Problems (1) Diabetes Assessment/Plan: BGM COVERAGE Code(s): E11.9 - TYPE 2 DIABETES MELLITUS WITHOUT COMPLICATIONS Qualifiers: Diabetes mellitus type: type 2 (2) HTN (hypertension) Assessment/Plan: MONITOR BP Code(s): I10 - ESSENTIAL (PRIMARY) HYPERTENSION Qualifiers: Hypertension type: essential hypertension Qualified Code(s): I10 - Essential (primary) hypertension (3) Fever Assessment/Plan: RESOLVED INCENTIVE SPIROMETRY MONITOR TEMPS ID Code(s): R50.9 - FEVER, UNSPECIFIED (4) Leukocytosis Assessment/Plan: H/O MPS--THIS IS HIGHER THAN BASELINE FOLLOW LABS CULTURES NOTED ID--NO ABX Code(s): D72.829 - ELEVATED WHITE BLOOD CELL COUNT, UNSPECIFIED (5) Anemia Assessment/Plan: MONITOR --S/P TRANSFUSION CBC WBC 19.2 K/mm3 (4.0-10.0) H 06/25/16 06:00 RBC 2.93 M/mm3 (3.60-5.2) L 06/25/16 06:00 Hgb 8.2 GM/dL (10.7-15.3) L 06/25/16 06:00 Hct 25.3 % (32.4-45.2) L 06/25/16 06:00 MCV 86.3 fl (80-96) 06/25/16 06:00 MCHC 32.6 g/dl (32.0-36.0) 06/25/16 06:00 RDW 13.8 % (11.6-15.6) 06/25/16 06:00 Plt Count 212 K/MM3 (134-434) 06/25/16 06:00 MPV 9.0 fl (7.5-11.1) 06/25/16 06:00 Neutrophils % 65.9 % (42.8-82.8) 06/25/16 06:00 Lymphocytes % 18.0 % (8-40) 06/25/16 06:00 Monocytes % 11.9 % (3.8-10.2) H 06/25/16 06:00 Eosinophils % 3.6 % (0-4.5) D 06/25/16 06:00 Basophils % 0.6 % (0-2.0) 06/25/16 06:00 Band Neutrophils 3.0 % (0-10) D 06/21/16 18:00 Differential Comment Manual diff done 06/23/16 08:28 Platelet Estimate Adequate (NORMAL) 06/23/16 08:28 RBC Morphology Appears normal 06/21/16 18:00 Code(s): D64.9 - ANEMIA, UNSPECIFIED (6) Renal insufficiency syndrome Assessment/Plan: IMPROVING MONITOR Laboratory Tests 06/23/16 06/24/16 08:28 07:50 Creatinine 1.6 H 1.3 H D Code(s): N28.9 - DISORDER OF KIDNEY AND URETER, UNSPECIFIED (7) Status post lumbar spine surgery for decompression of spinal cord Assessment/Plan: PER NS CUT DOWN ON PAIN MEDS Code(s): Z98.890 - OTHER SPECIFIED POSTPROCEDURAL STATES (8) Constipation Assessment/Plan: ADD MIRALAX Code(s): K59.00 - CONSTIPATION, UNSPECIFIED
[2016-06-28] MEDS: FUROSEMIDE 20 MG TABLET (FP) PO SCH (10:19)
[2016-06-28] MEDS: PANTOPRAZOLE 40 MG TABLET (FP) PO SCH (10:19)
[2016-06-28] MEDS: VALSARTAN 160 MG TABLET (UD) PO SCH ×2 (10:19→21:40)
[2016-06-28] MEDS: hydrALAZINE HCL 50 MG TABLET (FP) PO SCH ×2 (10:19→21:40)
[2016-06-28] MEDS: DOXAZOSIN MESYLATE 2 MG TABLET (FP) PO SCH ×2 (10:20→21:41)
[2016-06-28] MEDS: HEPARIN NA (PORCINE) 5,000 UNITS/ML 1ML VIAL SQ SCH ×2 (10:20→21:40)
[2016-06-28] MEDS: BUDESONIDE/FORMETEROL FUMARATE 80/4.5 mcg INHALER IH SCH ×2 (10:22→21:47)
[2016-06-28] MEDS: NYSTATIN POWDER 100,000 UNITS/GM - 15 GM TOPICAL POWDER TP SCH (10:22)
[2016-06-28] MEDS: POLYETHYLENE GLYCOL 3350 119 GM BTL PO SCH ×2 (10:22→21:51)
--- NOTE | 2016-06-28 12:53 | PN ---
Progress Note (short form) - Note Progress Note: no fevers oob to chair today stuffy nose dressing changed by neurosurgery earlier today Vital Signs Period Temp Pulse Resp BP Sys/Fernandes Pulse Ox Last 24 Hr 98.4 F-99.3 F 66-105 20-22 138-146/70-91 92-95 cor-rrr lungs decreased bs at bases abd soft,nt ext no edema CBC, BMP 06/28/16 08:00 06/25/16 06:00 Microbiology 06/23/16 11:30 Blood - Peripheral Venous Blood Culture - Final NO GROWTH AFTER 5 DAYS INCUBATION 06/23/16 11:35 Blood - Peripheral Venous Blood Culture - Final NO GROWTH AFTER 5 DAYS INCUBATION 06/24/16 18:45 Blood - Peripheral Venous Blood Culture - Preliminary NO GROWTH OBTAINED AFTER 72 HOURS, INCUBATION TO CONTINUE FOR 2 DAYS. 06/24/16 18:45 Blood - Peripheral Venous Blood Culture - Preliminary NO GROWTH OBTAINED AFTER 72 HOURS, INCUBATION TO CONTINUE FOR 2 DAYS. 06/23/16 16:00 Urine - Urine Meyer Urine Culture - Final NO GROWTH OBTAINED a/p fever- resolved, cultues are negative s/p laminectomy s/p splenectomy antibiotics d/shelia yesterday stable please call back if needed
[2016-06-28] MEDS: MONTELUKAST NA 10 MG TABLET PO SCH (21:40)
[2016-06-29] MEDS: ACETAMINOPHEN 325 MG TABLET (FP) PO PRN ×2 (00:48→06:23)
[2016-06-29] MEDS: oxyCODONE HCL 5 MG TABLET PO PRN ×2 (00:49→06:22)
[2016-06-29] MEDS: DOCUSATE SODIUM 100 MG CAPSULE (FP) PO SCH ×3 (05:47→22:13)
[2016-06-29] MEDS: diazePAM 5 MG TABLET PO SCH ×3 (05:47→22:13)
[2016-06-29] MEDS: D5-1/2NS+20 MEQ KCL - 1,000 ML IV SCH (05:47)
[2016-06-29] MEDS: GABAPENTIN 300 MG CAPSULE (FP) PO SCH ×3 (05:47→22:13)
[2016-06-29] MEDS: INSULIN SLIDING SCALE (NOVOLOG) 1 VIAL SQ SCH ×4 (06:26→22:30)
--- NOTE | 2016-06-29 07:42 | PN ---
Progress Note (short form) - Note Progress Note: NEUROSURGERY POD #8 Appreciate medical and ID followup Pain posterior thighs when moving around Brace fits well Tmax 98.9 VSS More awake CV-RR; Lungs-CTA B; Abd- + Bs, obese, mildly distended; Ext- no sign of DVT Dressing with minimal drainage - dressing changed Moving B UE and LE 4+-5/5 Sensation grossly intact Blood culture and urine culture all negative Decrease narcotic pain meds Incentive spirometry Off iv abx and afebrile x 24 hours PT/OOB with brace SQ heparin for DVT prophylaxis Declined by insurance for acute rehab On Neurontin PT
[2016-06-29] MEDS ORDERED: TAPENTADOL HYDROCHLORIDE 75 MG TABLET PO PRN (07:45)
--- NOTE | 2016-06-29 08:50 | PN ---
Progress Note, Physician History of Present Illness: 60 Y/O FEMALE S/P BACK SURGERY PT C/O BACK PAIN DENIES ANY CP OR SOB C/O CONSTIPATION - Current Medication List Current Medications: Active Medications Acetaminophen (Tylenol -) 650 mg PO Q6H PRN PRN Reason: FEVER Last Admin: 06/29/16 06:23 Dose: 650 mg Albuterol Sulfate (Ventolin Hfa Inhaler -) 1 puff IH QID PRN PRN Reason: Wheezing-SOB Albuterol Sulfate (Ventolin Hfa Inhaler -) 2 puff IH QID PRN PRN Reason: WHEEZING/SOB Bisacodyl (Dulcolax Suppository -) 10 mg RC DAILY PRN PRN Reason: CONSTIPATION Budesonide/Formoterol Fumarate (Symbicort 80/4.5mcg -) 2 puff IH BID [facility] Last Admin: 06/28/16 21:47 Dose: 2 puff Diazepam (Valium -) 5 mg PO TID [facility] Last Admin: 06/29/16 05:47 Dose: 5 mg Diphenhydramine HCl (Benadryl Injection -) 12.5 mg IVPUSH ONCE PRN PRN Reason: FOR ITCHING Docusate Sodium (Colace -) 100 mg PO TID [facility] Last Admin: 06/29/16 05:47 Dose: 100 mg Doxazosin Mesylate (Cardura -) 8 mg PO BID [facility] Last Admin: 06/28/16 21:41 Dose: 8 mg Furosemide (Lasix -) 20 mg PO DAILY [facility] Last Admin: 06/28/16 10:19 Dose: 20 mg Gabapentin (Neurontin -) 300 mg PO TID [facility] Last Admin: 06/29/16 05:47 Dose: 300 mg Heparin Sodium (Porcine) (Heparin -) 5,000 unit SQ BID [facility] Last Admin: 06/28/16 21:40 Dose: 5,000 unit Hydralazine HCl (Apresoline -) 50 mg PO BID [facility] Last Admin: 06/28/16 21:40 Dose: 50 mg Potassium Chloride/Dextrose/Sod Cl (D5-1/2ns+20 Meq Kcl -) 1,000 mls @ 100 mls/ hr IV ASDIR [facility] Last Admin: 06/29/16 05:47 Dose: 100 mls/hr Potassium Chloride/Dextrose/Sod Cl (D5-1/2ns+20 Meq Kcl -) 1,000 mls @ 42 mls/ hr IV ASDIR [facility] Insulin Aspart (Novolog Vial Sliding Scale -) 1 vial SQ ACHS [facility] PRN Reason: Protocol Last Admin: 06/29/16 06:26 Dose: Not Given Magnesium Citrate (Citroma -) 150 ml PO ONCE PRN Montelukast Sodium (Singulair -) 10 mg PO HS [facility] Last Admin: 06/28/16 21:40 Dose: 10 mg Nystatin (Nystop Powder -) 1 applic TP DAILY [facility] Last Admin: 06/28/16 10:22 Dose: 1 applic Ondansetron HCl (Zofran Injection) 4 mg IVPB Q6H PRN PRN Reason: NAUSEA AND/OR VOMITING Pantoprazole Sodium (Protonix -) 40 mg PO DAILY [facility] Last Admin: 06/28/16 10:19 Dose: 40 mg Polyethylene Glycol (Miralax (For Daily Use) -) 17 gm PO BID [facility] Last Admin: 06/28/16 21:51 Dose: Not Given Tapentadol (Nucynta -) 75 mg PO Q4H PRN PRN Reason: PAIN Valsartan (Diovan -) 160 mg PO BID [facility] Last Admin: 06/28/16 21:40 Dose: 160 mg - Objective Vital Signs: Vital Signs Temperature 98.9 F 06/29/16 05:56 Pulse Rate 94 H 06/29/16 05:56 Respiratory Rate 19 06/29/16 05:56 Blood Pressure 140/74 06/29/16 05:56 O2 Sat by Pulse Oximetry (%) 92 L 06/28/16 20:22 Cardiovascular: Yes: Regular Rate and Rhythm Respiratory: Yes: Regular, CTA Bilaterally Gastrointestinal: Yes: Normal Bowel Sounds, Soft Labs: CBC, BMP 06/28/16 08:00 06/25/16 06:00 Problem List - Problems (1) Diabetes Assessment/Plan: BGM COVERAGE Code(s): E11.9 - TYPE 2 DIABETES MELLITUS WITHOUT COMPLICATIONS Qualifiers: Diabetes mellitus type: type 2 (2) HTN (hypertension) Assessment/Plan: MONITOR BP Code(s): I10 - ESSENTIAL (PRIMARY) HYPERTENSION Qualifiers: Hypertension type: essential hypertension Qualified Code(s): I10 - Essential (primary) hypertension (3) Fever Assessment/Plan: RESOLVED INCENTIVE SPIROMETRY MONITOR TEMPS ID Code(s): R50.9 - FEVER, UNSPECIFIED (4) Leukocytosis Assessment/Plan: H/O MPS--THIS IS HIGHER THAN BASELINE FOLLOW LABS CULTURES NOTED ID--NO ABX Code(s): D72.829 - ELEVATED WHITE BLOOD CELL COUNT, UNSPECIFIED (5) Anemia Assessment/Plan: MONITOR --S/P TRANSFUSION CBC WBC 19.2 K/mm3 (4.0-10.0) H 06/25/16 06:00 RBC 2.93 M/mm3 (3.60-5.2) L 06/25/16 06:00 Hgb 8.2 GM/dL (10.7-15.3) L 06/25/16 06:00 Hct 25.3 % (32.4-45.2) L 06/25/16 06:00 MCV 86.3 fl (80-96) 06/25/16 06:00 MCHC 32.6 g/dl (32.0-36.0) 06/25/16 06:00 RDW 13.8 % (11.6-15.6) 06/25/16 06:00 Plt Count 212 K/MM3 (134-434) 06/25/16 06:00 MPV 9.0 fl (7.5-11.1) 06/25/16 06:00 Neutrophils % 65.9 % (42.8-82.8) 06/25/16 06:00 Lymphocytes % 18.0 % (8-40) 06/25/16 06:00 Monocytes % 11.9 % (3.8-10.2) H 06/25/16 06:00 Eosinophils % 3.6 % (0-4.5) D 06/25/16 06:00 Basophils % 0.6 % (0-2.0) 06/25/16 06:00 Band Neutrophils 3.0 % (0-10) D 06/21/16 18:00 Differential Comment Manual diff done 06/23/16 08:28 Platelet Estimate Adequate (NORMAL) 06/23/16 08:28 RBC Morphology Appears normal 06/21/16 18:00 Code(s): D64.9 - ANEMIA, UNSPECIFIED (6) Renal insufficiency syndrome Assessment/Plan: IMPROVING MONITOR Laboratory Tests 06/23/16 06/24/16 08:28 07:50 Creatinine 1.6 H 1.3 H D Code(s): N28.9 - DISORDER OF KIDNEY AND URETER, UNSPECIFIED (7) Status post lumbar spine surgery for decompression of spinal cord Assessment/Plan: PER NS PT--SNF Code(s): Z98.890 - OTHER SPECIFIED POSTPROCEDURAL STATES (8) Constipation Assessment/Plan: ADD MIRALAX HAVING BM Code(s): K59.00 - CONSTIPATION, UNSPECIFIED
[2016-06-29] MEDS ORDERED: PT OWN MED DRAWER 7, Y5N ONE (09:31)
[2016-06-29] MEDS: HEPARIN NA (PORCINE) 5,000 UNITS/ML 1ML VIAL SQ SCH ×2 (09:36→22:14)
[2016-06-29] MEDS: VALSARTAN 160 MG TABLET (UD) PO SCH ×2 (09:36→22:13)
[2016-06-29] MEDS: PANTOPRAZOLE 40 MG TABLET (FP) PO SCH (09:36)
[2016-06-29] MEDS: FUROSEMIDE 20 MG TABLET (FP) PO SCH (09:36)
[2016-06-29] MEDS: hydrALAZINE HCL 50 MG TABLET (FP) PO SCH ×2 (09:36→22:13)
[2016-06-29] MEDS: POLYETHYLENE GLYCOL 3350 119 GM BTL PO SCH ×2 (09:36→22:14)
[2016-06-29] MEDS: TAPENTADOL HYDROCHLORIDE 50 MG TABLET PO PRN ×3 (09:37→22:13)
[2016-06-29] MEDS: BUDESONIDE/FORMETEROL FUMARATE 80/4.5 mcg INHALER IH SCH ×2 (09:37→22:14)
[2016-06-29] MEDS: DOXAZOSIN MESYLATE 2 MG TABLET (FP) PO SCH ×2 (12:15→22:12)
[2016-06-29] MEDS: NYSTATIN POWDER 100,000 UNITS/GM - 15 GM TOPICAL POWDER TP SCH (12:16)
--- NOTE | 2016-06-29 13:06 | HOSP ---
Subjective - Review of Symptoms Events since last encounter: mechanical fall Subjective: patient anat in bathroom, states she tripped and fell on soft part of buttock on floor. got up right away. denies any lightheadedness, dizziness, diaphoresis , palpitations, chest pain or loc before or after fall. States she doesnt usually fall. denies hitting head or any other part of body. states she has pain shooting down both legs, lower back pain and slight numbness in legs L>R but this is her baseline pain. No change in chronic symptoms. no h/a, n/v, chest pain. HEENT: No: Head Aches, Visual Changes, Eye Pain, Ear Pain, Dysphasia Pulmonary: No: Dyspnea, Cough, Pleuritic Chest Pain Cardiovascular: No: Chest Pain, Palpitations, Light Headedness Gastrointestinal: No: Nausea, Vomiting, Abdominal Pain Genitourinary: No: Dysuria Musculoskeletal: Yes: Extremity Pain (b/l LE pain, shooting down L>R) Neurological: Yes: Numbness (LLE slighlty number than RLE ). No: Weakness, Incoordination, Change in speech, Confusion, Seizures Physical Examination Vital Signs: Vital Signs Temperature 98.0 F 06/29/16 08:00 Pulse Rate 84 06/29/16 08:00 Respiratory Rate 20 06/29/16 08:00 Blood Pressure 158/81 06/29/16 08:00 O2 Sat by Pulse Oximetry (%) 100 06/29/16 08:00 Constitutional: Yes: No Distress, Calm Eyes: Yes: Conjunctiva Clear, EOM Intact, PERRL HENT: Yes: Atraumatic, Normocephalic Neck: Yes: WNL, Supple. No: Decreased ROM, Tenderness Cardiovascular: Yes: Regular Rate and Rhythm, S1, S2 Respiratory: Yes: CTA Bilaterally Gastrointestinal: Yes: Normal Bowel Sounds, Soft Musculoskeletal: Yes: Back Pain (baseline lumbar pain, limited rom, back brace, surgical scar dressed, no blood), Other (no hematoma on buttock or sacrum, no other lesions, no hip pain). No: Joint Swelling, Muscle Weakness Extremities: Yes: Other (atraumatic) Edema: No Peripheral Pulses: Left Doralis Pedis: 2+, Right Dorsalis Pedis: 2+ Neurological: Yes: Alert, Oriented, Cran Nerves II-XII Intact, Paresthesia (LLE slightly lesssentastion than RLE but baseline per patient), Weakness (Eqial LE ans UE strength 5/5), Other (RLE patellar reflex 2+, LLE patellar reflex 1+) Labs: CBC, BMP 06/28/16 08:00 06/25/16 06:00 Hospitalist Encounter Assessment: s/p mechanical fall on buttocks in patient on heparin a week s/p lumbar fusion -no apparent bruising to region, no tenderness, no bleed -no head trauma -head imaging not indicated -XR lumbar/sacrum per neurosurgery Visit type - Emergency Visit Emergency Visit: No - New Patient This patient is new to me today: Yes Date on this admission: 06/29/16 - Critical Care Critical Care patient: No
--- NOTE | 2016-06-29 14:21 | HOSP ---
Subjective - Review of Symptoms Events since last encounter: pt seen after a fall. she slipped in bathroom , landed on her R buttock. did not have LOC , or head trauma. she denied any change in vision , HOFFMAN , new neurological sx ( has old b/l LE weakness and LLE numbness from back etiology ) . has R posterior hip apain On exam : NAD, AAOx3 Cv: RRR, no MRG MS : no bruises over buttocks, or hips. no TTP over R groin . TTP over soft tissue on R buttock Neuro: EOMI, round equal pupils reactive to light . symmetric face , no facial droop. tongue at mid line strength 5/5 in upper ext proximally and distally . 4/5 in hip flexion b/l . 5/5 knee extension and flexion on both sides. 5/5 dorsiflexion and plantar flexion. reflexes : 2+ knee jerk , 1 + ankle jerk b/l sensation decreased on L LE , which is chronic A/P Mechanical fall without head trauma and without any neurological sx after the fall neuro exam is remarkable only for the LE weakness and numbness which is not new. she has R posterior hip apin. - No need fro head imaging at this point unless sx develop . Pt does not want CT imaging after explaining risks and benefits of this - will order hip xray and pelvis xray - L spine xray was ordered - if pt continue with hip pain , despite negative Xray then she will need CT evaluation( primary team ) primary team is to assume care Physical Examination Vital Signs: Vital Signs Temperature 97.9 F 06/29/16 13:51 Pulse Rate 102 H 06/29/16 13:51 Respiratory Rate 18 06/29/16 13:51 Blood Pressure 108/66 06/29/16 12:30 O2 Sat by Pulse Oximetry (%) 100 06/29/16 08:00 Labs: CBC, BMP 06/28/16 08:00 06/25/16 06:00
[2016-06-29] MEDS ORDERED: D5-1/2NS+20 MEQ KCL - 1,000 ML IV SCH (21:15)
[2016-06-29] MEDS: MONTELUKAST NA 10 MG TABLET PO SCH (22:12)
[2016-06-30] MEDS: TAPENTADOL HYDROCHLORIDE 50 MG TABLET PO PRN ×2 (02:04→06:05)
[2016-06-30] MEDS: DOCUSATE SODIUM 100 MG CAPSULE (FP) PO SCH ×2 (06:05→14:15)
[2016-06-30] MEDS: diazePAM 5 MG TABLET PO SCH ×2 (06:05→14:27)
[2016-06-30] MEDS: GABAPENTIN 300 MG CAPSULE (FP) PO SCH ×2 (06:06→14:27)
[2016-06-30] MEDS: INSULIN SLIDING SCALE (NOVOLOG) 1 VIAL SQ SCH ×2 (06:15→12:02)
--- NOTE | 2016-06-30 07:39 | PN ---
Progress Note (short form) - Note Progress Note: NEUROSURGERY POD #9 UP in chair Brace fits well Tmax 98.9 VSS Tolerating diet and drinking fluid CV-RR; Lungs-CTA B; Abd- + Bs, obese, mildly distended; Ext- no sign of DVT Dressing C/D/I Moving B UE and LE 4+-5/5 Sensation grossly intact Blood culture and urine culture all negative Decrease narcotic pain meds Incentive spirometry Off iv abx and afebrile x 48 hours PT/OOB with brace SQ heparin for DVT prophylaxis Declined by insurance for acute rehab despite appeal On Neurontin D/C IVF PT
--- NOTE | 2016-06-30 08:35 | PN ---
Progress Note, Physician History of Present Illness: 60 Y/O FEMALE S/P BACK SURGERY PT C/O BACK PAIN DENIES ANY CP OR SOB - Current Medication List Current Medications: Active Medications Acetaminophen (Tylenol -) 650 mg PO Q6H PRN PRN Reason: FEVER Last Admin: 06/29/16 06:23 Dose: 650 mg Albuterol Sulfate (Ventolin Hfa Inhaler -) 1 puff IH QID PRN PRN Reason: Wheezing-SOB Albuterol Sulfate (Ventolin Hfa Inhaler -) 2 puff IH QID PRN PRN Reason: WHEEZING/SOB Bisacodyl (Dulcolax Suppository -) 10 mg RC DAILY PRN PRN Reason: CONSTIPATION Budesonide/Formoterol Fumarate (Symbicort 80/4.5mcg -) 2 puff IH BID [facility] Last Admin: 06/29/16 22:14 Dose: 2 puff Diazepam (Valium -) 5 mg PO TID [facility] Last Admin: 06/30/16 06:05 Dose: 5 mg Diphenhydramine HCl (Benadryl Injection -) 12.5 mg IVPUSH ONCE PRN PRN Reason: FOR ITCHING Docusate Sodium (Colace -) 100 mg PO TID [facility] Last Admin: 06/30/16 06:05 Dose: 100 mg Doxazosin Mesylate (Cardura -) 8 mg PO BID [facility] Last Admin: 06/29/16 22:12 Dose: 8 mg Furosemide (Lasix -) 20 mg PO DAILY [facility] Last Admin: 06/29/16 09:36 Dose: 20 mg Gabapentin (Neurontin -) 300 mg PO TID [facility] Last Admin: 06/30/16 06:06 Dose: 300 mg Heparin Sodium (Porcine) (Heparin -) 5,000 unit SQ BID [facility] Last Admin: 06/29/16 22:14 Dose: 5,000 unit Hydralazine HCl (Apresoline -) 50 mg PO BID [facility] Last Admin: 06/29/16 22:13 Dose: 50 mg Potassium Chloride/Dextrose/Sod Cl (D5-1/2ns+20 Meq Kcl -) 1,000 mls @ 42 mls/ hr IV ASDIR [facility] Last Admin: 06/29/16 22:15 Dose: 42 mls/hr Insulin Aspart (Novolog Vial Sliding Scale -) 1 vial SQ ACHS [facility] PRN Reason: Protocol Last Admin: 06/30/16 06:15 Dose: Not Given Magnesium Citrate (Citroma -) 150 ml PO ONCE PRN Montelukast Sodium (Singulair -) 10 mg PO HS [facility] Last Admin: 06/29/16 22:12 Dose: 10 mg Nystatin (Nystop Powder -) 1 applic TP DAILY [facility] Last Admin: 06/29/16 12:16 Dose: Not Given Ondansetron HCl (Zofran Injection) 4 mg IVPB Q6H PRN PRN Reason: NAUSEA AND/OR VOMITING Pantoprazole Sodium (Protonix -) 40 mg PO DAILY [facility] Last Admin: 06/29/16 09:36 Dose: 40 mg Polyethylene Glycol (Miralax (For Daily Use) -) 17 gm PO BID [facility] Last Admin: 06/29/16 22:14 Dose: 17 gm Tapentadol (Nucynta -) 50 mg PO Q4H PRN PRN Reason: PAIN Last Admin: 06/30/16 06:05 Dose: 50 mg Valsartan (Diovan -) 160 mg PO BID [facility] Last Admin: 06/29/16 22:13 Dose: 160 mg - Objective Vital Signs: Vital Signs Temperature 98.6 F 06/30/16 06:57 Pulse Rate 87 06/30/16 06:57 Respiratory Rate 20 06/30/16 06:57 Blood Pressure 150/77 06/30/16 06:57 O2 Sat by Pulse Oximetry (%) 92 L 06/29/16 21:00 Cardiovascular: Yes: Regular Rate and Rhythm Respiratory: Yes: Regular, CTA Bilaterally Gastrointestinal: Yes: Normal Bowel Sounds, Soft. No: Tenderness Edema: No Labs: CBC, BMP 06/28/16 08:00 06/25/16 06:00 Problem List - Problems (1) Diabetes Assessment/Plan: BGM COVERAGE Code(s): E11.9 - TYPE 2 DIABETES MELLITUS WITHOUT COMPLICATIONS Qualifiers: Diabetes mellitus type: type 2 (2) HTN (hypertension) Assessment/Plan: MONITOR BP Code(s): I10 - ESSENTIAL (PRIMARY) HYPERTENSION Qualifiers: Hypertension type: essential hypertension Qualified Code(s): I10 - Essential (primary) hypertension (3) Fever Assessment/Plan: RESOLVED INCENTIVE SPIROMETRY MONITOR TEMPS ID Code(s): R50.9 - FEVER, UNSPECIFIED (4) Leukocytosis Assessment/Plan: H/O MPS--THIS IS HIGHER THAN BASELINE FOLLOW LABS CULTURES NOTED ID--NO ABX Laboratory Tests 06/25/16 06/28/16 06:00 08:00 WBC 19.2 H 15.9 H Code(s): D72.829 - ELEVATED WHITE BLOOD CELL COUNT, UNSPECIFIED (5) Anemia Assessment/Plan: MONITOR --S/P TRANSFUSION Laboratory Tests 06/24/16 06/25/16 06/28/16 07:50 06:00 08:00 Hgb 8.4 L 8.2 L 8.5 L Code(s): D64.9 - ANEMIA, UNSPECIFIED (6) Renal insufficiency syndrome Assessment/Plan: IMPROVING MONITOR Laboratory Tests 06/23/16 06/24/16 06/25/16 08:28 07:50 06:00 Creatinine 1.6 H 1.3 H D 1.0 D Code(s): N28.9 - DISORDER OF KIDNEY AND URETER, UNSPECIFIED (7) Status post lumbar spine surgery for decompression of spinal cord Assessment/Plan: PER NS PT--SNF Code(s): Z98.890 - OTHER SPECIFIED POSTPROCEDURAL STATES (8) Constipation Assessment/Plan: RESOLVED on MIRALAX HAVING BM Code(s): K59.00 - CONSTIPATION, UNSPECIFIED
[2016-06-30] MEDS ORDERED: PT OWN MED DRAWER 7, Y5N ONE (10:25)
[2016-06-30] MEDS: HEPARIN NA (PORCINE) 5,000 UNITS/ML 1ML VIAL SQ SCH (10:29)
[2016-06-30] MEDS: VALSARTAN 160 MG TABLET (UD) PO SCH (10:29)
[2016-06-30] MEDS: PANTOPRAZOLE 40 MG TABLET (FP) PO SCH (10:29)
[2016-06-30] MEDS: hydrALAZINE HCL 50 MG TABLET (FP) PO SCH (10:29)
[2016-06-30] MEDS: BUDESONIDE/FORMETEROL FUMARATE 80/4.5 mcg INHALER IH SCH (10:29)
[2016-06-30] MEDS: FUROSEMIDE 20 MG TABLET (FP) PO SCH (10:29)
[2016-06-30] MEDS: POLYETHYLENE GLYCOL 3350 119 GM BTL PO SCH (10:30)
[2016-06-30] MEDS: NYSTATIN POWDER 100,000 UNITS/GM - 15 GM TOPICAL POWDER TP SCH (10:31)
[2016-06-30] MEDS: DOXAZOSIN MESYLATE 2 MG TABLET (FP) PO SCH (14:26)
[2016-06-30 15:31] VITALS: BP 130/80; PULSE 98; TEMP 98.2
== END 2016-06-30 15:26 | DRG 460 ==
LOC: JSAMEDAYSX 06:14 → J6S 20:11
PROVIDERS: ADMIT Orthopaedic Surgery; ATTEND Orthopaedic Surgery
PROC: 0SG30A1 (ICD-10-PCS; 2016-06-21)
PROC: 0ST40ZZ Resection of Lumbosacral Disc, Open Approach (ICD-10-PCS; 2016-06-21)
PROC: 0QU007Z Supplement Lumbar Vertebra with Autologous Tissue Substitute, Open Approach (ICD-10-PCS; 2016-06-21)
PROC: 00NY0ZZ Release Lumbar Spinal Cord, Open Approach (ICD-10-PCS; principal; 2016-06-21 08:00)
PROC: 30233N1 Transfusion of Nonautologous Red Blood Cells into Peripheral Vein, Percutaneous Approach (ICD-10-PCS; 2016-06-23)
DX: M48.07 Spinal stenosis, lumbosacral region (principal); I10 Essential (primary) hypertension; J44.9 Chronic obstructive pulmonary disease, unspecified; J45.909 Unspecified asthma, uncomplicated; M53.2X7 Spinal instabilities, lumbosacral region; D72.829 Elevated white blood cell count, unspecified; D64.9 Anemia, unspecified; K59.00 Constipation, unspecified; R50.9 Fever, unspecified; K21.9 Gastro-esophageal reflux disease without esophagitis; Z87.891 Personal history of nicotine dependence; E66.9 Obesity, unspecified; Z68.38 Body mass index [BMI] 38.0-38.9, adult; M43.17 Spondylolisthesis, lumbosacral region; E11.9 Type 2 diabetes mellitus without complications
CPT/HCPCS: 36415; 36430; 71010-TC; 72100-TC; 73523-TC; 76000-TC; 80048; 80051; 80053; 81003; 81015; 82565; 84520; 85025; 85027; 86850; 86900; 86901; 86922; 87040; 87086; 88304-TC; 94640; 94760; 97116-GP; 97162-PG; J1644; P9038; P9058

== ENCOUNTER 2023-10-15 09:11 | Inpatient (IN) | payer OTHER ==
[2023-10-15] MEDS: ONDANSETRON 4 MG/2 ML VIAL IVPUSH ONE (10:00)
[2023-10-15] MEDS: methylPREDNISolone NA SUCC 125 MG/2 ML VIAL IVPUSH ONE (10:00)
[2023-10-15] MEDS: FAMOTIDINE 20 MG/50 ML IVPB 20 MG/50 ML MG IVPB ONE (10:00)
[2023-10-15] MEDS: ACETAMINOPHEN 1000 MG/100 ML BAG IVPB ONE (10:00)
[2023-10-15] MEDS ORDERED: ONDANSETRON 4 MG/2 ML VIAL ONE (10:12)
[2023-10-15] MEDS ORDERED: FAMOTIDINE 20 MG/50 ML IVPB 20 MG/50 ML MG IVPB ONE (10:12)
[2023-10-15] MEDS ORDERED: ACETAMINOPHEN INJECTION 100 ML IVPB ONE (10:12)
[2023-10-15] MEDS ORDERED: diphenhydrAMINE HCL 25 MG CAPSULE (FP) PO ONE (10:12)
[2023-10-15] MEDS ORDERED: methylPREDNISolone NA SUCC 125 MG/2 ML VIAL ONE (10:37)
[2023-10-15 10:39] LABS: HEMATOCRIT 38.8 % (32.4-45.2); HEMOGLOBIN 12.9 GM/dL (10.7-15.3); MCH 29.1 pg (25.7-33.7); MCHC 33.2 g/dl (32.0-36.0); MEAN CELL VOLUME 87.6 fl (80-96); PLATELET COUNT 280 10^3/uL (134-434); RBC 4.43 M/mm3 (3.60-5.2); RDW 16.5 % (11.6-15.6); WHITE BLOOD COUNT 26.4 K/mm3 (4.0-10.0)
[2023-10-15 10:46] LABS: INR 1.05 (0.83-1.09); PROTHROMBIN TIME (PATIENT) 12.1 SEC (9.7-13.0)
[2023-10-15 10:49] LABS: ACTIVATED PTT 28.8 SECONDS (25.2-36.5)
[2023-10-15 10:58] LABS: POTASSIUM 4.5 mmol/L (3.5-5.1)
[2023-10-15 11:01] LABS: CALCIUM 9.1 mg/dL (8.5-10.1)
[2023-10-15 11:02] LABS: ALBUMIN 3.7 g/dl (3.4-5.0); BLOOD UREA NITROGEN 30.8 mg/dL (7-18)
[2023-10-15 11:05] LABS: CREATININE 1.5 mg/dL (0.55-1.3)
[2023-10-15 11:06] LABS: BILIRUBIN,TOTAL 0.6 mg/dL (0.2-1); TOT PROT 8.3 g/dl (6.4-8.2)
[2023-10-15 11:09] LABS: ANISOCYTOSIS 2+; MACROCYTOSIS 0
[2023-10-15] MEDS: diphenhydrAMINE HCL 25 MG CAPSULE (FP) PO ONE (11:45)
[2023-10-15] MEDS: SODIUM CHLORIDE 0.9% 500 ML INFUS.BAG IV ONE (11:46)
[2023-10-15] MEDS ORDERED: ASPIRIN 81 MG CHEWABLE TABLETS ONE (13:05)
[2023-10-15] MEDS ORDERED: VALSARTAN 80 MG TABLET ONE ×2 (13:05→22:40)
[2023-10-15] MEDS ORDERED: GABAPENTIN 300 MG CAPSULE ONE ×2 (13:05→22:40)
[2023-10-15] MEDS: VALSARTAN 160 MG TABLET PO SCH (13:15)
[2023-10-15] MEDS: ASPIRIN 81 MG CHEWABLE TABLETS PO ONE (13:15)
[2023-10-15] MEDS: GABAPENTIN 300 MG CAPSULE PO SCH (13:15)
[2023-10-15] MEDS: SODIUM CHLORIDE 0.9%/KCL 20 MEQ/1,000 ML INFUS.BAG IV SCH (14:07)
[2023-10-15 16:22] LABS: EPI CELLS 29 /uL (0-25.1); HYALINE CASTS 8 /uL (0-3.1); URINE APPEARANCE CLOUDY; URINE BACTERIA 9 /uL (0-1359); URINE BILIRUBIN NEGATIVE (NEGATIVE); URINE COLOR DK YELLOW; URINE GLUCOSE (UA) 3+ (NEGATIVE); URINE KETONE TRACE (NEGATIVE); URINE LEUK ESTERASE NEGATIVE (NEGATIVE); URINE NITRITE NEGATIVE (NEGATIVE); URINE PROTEIN 4+ (NEGATIVE); URINE WBC 35 /uL (0-25.8)
[2023-10-15] MEDS ORDERED: VANCOMYCIN 1 GRAM (PRE-DOCKED) 1,000 MG/250 ML BAG IVPB ONE (18:24)
[2023-10-15] MEDS: VANCOMYCIN 1 GRAM (PRE-DOCKED) 1,000 MG/250 ML BAG IVPB ONE (18:58)
[2023-10-15] MEDS: AZTREONAM 1 GM in DEXTROSE 5%-WATER - 50 ML IVPB SCH (19:38)
[2023-10-15] MEDS ORDERED: hydrALAZINE HCL 50 MG TABLET (FP) ONE (22:40)
[2023-10-15] MEDS ORDERED: HEPARIN NA (PORCINE) 5,000 UNITS/ML 1ML VIAL ONE (22:40)
[2023-10-15] MEDS ORDERED: MONTELUKAST NA 10 MG TABLET ONE (22:40)
[2023-10-15] MEDS ORDERED: PANTOPRAZOLE SODIUM 40 MG VIAL ONE (22:41)
[2023-10-15] MEDS: DOXAZOSIN MESYLATE 4 MG TABLET PO SCH (22:54)
[2023-10-15] MEDS: PANTOPRAZOLE SODIUM 40 MG VIAL IVPUSH SCH (22:54)
[2023-10-15] MEDS: HEPARIN NA (PORCINE) 5,000 UNITS/ML 1ML VIAL SQ SCH (22:54)
[2023-10-15] MEDS: hydrALAZINE HCL 50 MG TABLET (FP) PO SCH (22:54)
[2023-10-15] MEDS: VALSARTAN 80 MG TABLET PO SCH (22:54)
[2023-10-15] MEDS: MONTELUKAST NA 10 MG TABLET PO SCH (22:54)
[2023-10-15] MEDS: BUDESONIDE/FORMOTEROL FUMARATE 80-4.5 MCG (10.3 GM INHALER) IH SCH (22:54)
[2023-10-16] MEDS ORDERED: GABAPENTIN 300 MG CAPSULE ONE (06:03)
[2023-10-16 07:19] LABS: HEMATOCRIT 36.7 % (32.4-45.2); HEMOGLOBIN 11.9 GM/dL (10.7-15.3); MCH 28.6 pg (25.7-33.7); MCHC 32.3 g/dl (32.0-36.0); MEAN CELL VOLUME 88.4 fl (80-96); MEAN PLT VOLUME 9.9 fl (7.5-11.1); PLATELET COUNT 259 10^3/uL (134-434); RBC 4.15 M/mm3 (3.60-5.2); RDW 16.1 % (11.6-15.6); WHITE BLOOD COUNT 28.6 K/mm3 (4.0-10.0)
[2023-10-16 07:40] LABS: POTASSIUM 3.8 mmol/L (3.5-5.1)
[2023-10-16 07:42] LABS: ALBUMIN 3.4 g/dl (3.4-5.0); BLOOD UREA NITROGEN 42.7 mg/dL (7-18); CALCIUM 8.9 mg/dL (8.5-10.1); MAGNESIUM 2.2 mg/dL (1.8-2.4)
[2023-10-16 07:45] LABS: CREATININE 1.3 mg/dL (0.55-1.3)
[2023-10-16 07:47] LABS: BILIRUBIN,TOTAL 0.5 mg/dL (0.2-1); TOT PROT 7.3 g/dl (6.4-8.2)
[2023-10-16] MEDS ORDERED: AZTREONAM 1 GM VIAL (RESTRICTED TO ID) ONE (07:48)
[2023-10-16 11:12] LABS: PLATELET ESTIMATE ADEQUATE
[2023-10-16] MEDS ORDERED: ACETAMINOPHEN 325 MG TABLET (FP) ONE (13:49)
[2023-10-16] MEDS: VANCOMYCIN/WATER 1250 MG 1,250 MG/250 ML BAG IVPB SCH (16:54)
[2023-10-16 19:05] VITALS: BMI 33.6
[2023-10-17] MEDS: ACETAMINOPHEN 325 MG TABLET (FP) PO PRN (09:15)
[2023-10-17 12:22] LABS: BASO % 0.3 % (0-2.0); HEMATOCRIT 31.2 % (32.4-45.2); HEMOGLOBIN 10.1 GM/dL (10.7-15.3); LYMPH % 19.7 % (8-40); MCH 28.7 pg (25.7-33.7); MCHC 32.4 g/dl (32.0-36.0); MEAN CELL VOLUME 88.6 fl (80-96); MEAN PLT VOLUME 10.3 fl (7.5-11.1); MONO % 10.9 % (3.8-10.2); NEUT % 69.1 % (42.8-82.8); PLATELET COUNT 246 10^3/uL (134-434); RBC 3.52 M/mm3 (3.60-5.2); RDW 16.3 % (11.6-15.6); WHITE BLOOD COUNT 18.8 K/mm3 (4.0-10.0)
[2023-10-17 12:38] LABS: POTASSIUM 3.9 mmol/L (3.5-5.1)
[2023-10-17 12:40] LABS: ALBUMIN 2.9 g/dl (3.4-5.0)
[2023-10-17 12:41] LABS: BLOOD UREA NITROGEN 40.5 mg/dL (7-18); CALCIUM 8.6 mg/dL (8.5-10.1)
[2023-10-17 12:45] LABS: CREATININE 1.2 mg/dL (0.55-1.3)
[2023-10-17 12:46] LABS: TOT PROT 6.4 g/dl (6.4-8.2)
[2023-10-17 12:47] LABS: BILIRUBIN,TOTAL 0.4 mg/dL (0.2-1)
[2023-10-17] MEDS: hydrALAZINE HCL 10 MG TABLET PO SCH (14:08)
[2023-10-18] MEDS: traMADol HCL 50 MG TABLET PO PRN (00:39)
[2023-10-18 06:23] LABS: BASO % 0.7 % (0-2.0); EOS % 0.7 % (0-4.5); HEMOGLOBIN 9.7 GM/dL (10.7-15.3); LYMPH % 27.5 % (8-40); MCH 28.9 pg (25.7-33.7); MCHC 32.5 g/dl (32.0-36.0); MEAN CELL VOLUME 88.9 fl (80-96); MEAN PLT VOLUME 9.7 fl (7.5-11.1); MONO % 9.6 % (3.8-10.2); NEUT % 61.5 % (42.8-82.8); PLATELET COUNT 224 10^3/uL (134-434); RBC 3.37 M/mm3 (3.60-5.2); RDW 15.8 % (11.6-15.6); WHITE BLOOD COUNT 16.8 K/mm3 (4.0-10.0)
[2023-10-18 06:38] LABS: POTASSIUM 4.1 mmol/L (3.5-5.1)
[2023-10-18 06:42] LABS: ALBUMIN 2.5 g/dl (3.4-5.0); CALCIUM 8.2 mg/dL (8.5-10.1)
[2023-10-18 06:43] LABS: BLOOD UREA NITROGEN 30.7 mg/dL (7-18)
[2023-10-18 06:47] LABS: BILIRUBIN,TOTAL 0.5 mg/dL (0.2-1); TOT PROT 5.8 g/dl (6.4-8.2)
[2023-10-18 23:12] LABS: URINE APPEARANCE CLEAR; URINE BILIRUBIN NEGATIVE (NEGATIVE); URINE COLOR YELLOW; URINE GLUCOSE (UA) NEGATIVE (NEGATIVE); URINE KETONE NEGATIVE (NEGATIVE); URINE LEUK ESTERASE NEGATIVE (NEGATIVE); URINE NITRITE NEGATIVE (NEGATIVE); URINE PROTEIN TRACE (NEGATIVE); URINE UROBILINOGEN 0.2 mg/dL (0.2-1.0)
[2023-10-19 12:15] LABS: BASO % 0.4 % (0-2.0); HEMATOCRIT 30.9 % (32.4-45.2); LYMPH % 22.8 % (8-40); MCH 28.4 pg (25.7-33.7); MCHC 32.4 g/dl (32.0-36.0); MEAN CELL VOLUME 87.5 fl (80-96); MEAN PLT VOLUME 9.9 fl (7.5-11.1); MONO % 8.1 % (3.8-10.2); NEUT % 66.7 % (42.8-82.8); PLATELET COUNT 252 10^3/uL (134-434); RBC 3.53 M/mm3 (3.60-5.2); RDW 16.2 % (11.6-15.6); WHITE BLOOD COUNT 18.2 K/mm3 (4.0-10.0)
[2023-10-19 20:07] LABS: ANTIGLOMERULAR BASEMENT MEN.AB <0.2 units (0.0-0.9); C-ANCA Negative titer (Neg:<1:20)
[2023-10-20 08:06] LABS: HEMATOCRIT 30.3 % (32.4-45.2); HEMOGLOBIN 9.9 GM/dL (10.7-15.3); MCH 28.7 pg (25.7-33.7); MCHC 32.7 g/dl (32.0-36.0); MEAN CELL VOLUME 87.7 fl (80-96); MEAN PLT VOLUME 10.1 fl (7.5-11.1); PLATELET COUNT 270 10^3/uL (134-434); RBC 3.46 M/mm3 (3.60-5.2); RDW 15.9 % (11.6-15.6); WHITE BLOOD COUNT 18.2 K/mm3 (4.0-10.0)
[2023-10-20 08:15] LABS: POTASSIUM 4.1 mmol/L (3.5-5.1)
[2023-10-20 08:16] LABS: CALCIUM 8.6 mg/dL (8.5-10.1)
[2023-10-20 08:17] LABS: ALBUMIN 2.8 g/dl (3.4-5.0); BLOOD UREA NITROGEN 13.2 mg/dL (7-18)
[2023-10-20 08:20] LABS: CREATININE 0.7 mg/dL (0.55-1.3)
[2023-10-20 08:21] LABS: BILIRUBIN,TOTAL 0.4 mg/dL (0.2-1); TOT PROT 6.6 g/dl (6.4-8.2)
[2023-10-20 10:09] LABS: ANISOCYTOSIS 0; MACROCYTOSIS 0; OVALOCYTE 1+
[2023-10-21] MEDS: DOXAZOSIN MESYLATE 2 MG TABLET PO SCH (11:28)
[2023-10-22] MEDS: NIFEdipine E.R. 30 MG TABLET PO SCH (10:45)
[2023-10-22 22:45] VITALS: RESP 18
[2023-10-23 07:45] LABS: BASO % 0.2 % (0-2.0); EOS % 2.1 % (0-4.5); HEMATOCRIT 30.1 % (32.4-45.2); HEMOGLOBIN 9.7 GM/dL (10.7-15.3); LYMPH % 21.3 % (8-40); MCH 28.5 pg (25.7-33.7); MCHC 32.3 g/dl (32.0-36.0); MEAN CELL VOLUME 88.3 fl (80-96); MEAN PLT VOLUME 9.8 fl (7.5-11.1); MONO % 13.3 % (3.8-10.2); NEUT % 63.1 % (42.8-82.8); PLATELET COUNT 292 10^3/uL (134-434); RBC 3.41 M/mm3 (3.60-5.2); RDW 16.1 % (11.6-15.6); WHITE BLOOD COUNT 15.7 K/mm3 (4.0-10.0)
[2023-10-23 08:01] LABS: POTASSIUM 3.8 mmol/L (3.5-5.1)
[2023-10-23 08:03] LABS: CALCIUM 8.6 mg/dL (8.5-10.1)
[2023-10-23 08:04] LABS: BLOOD UREA NITROGEN 7.9 mg/dL (7-18)
[2023-10-23 08:07] LABS: CREATININE 0.7 mg/dL (0.55-1.3)
[2023-10-23 08:08] LABS: BILIRUBIN,TOTAL 0.4 mg/dL (0.2-1)
[2023-10-23 10:13] VITALS: BP 146/82; PULSE 66; TEMP 98.6
== END 2023-10-23 10:17 | disposition home or self-care (01) | DRG 607 ==
LOC: JER 09:11 → JERFT 09:11 → JERBED 11:41 → J4S 10-16 14:27
PROVIDERS: ADMIT Family Medicine; ATTEND Family Medicine
PROC: 0HBKXZX Excision of Right Lower Leg Skin, External Approach, Diagnostic (ICD-10-PCS; principal; 2023-10-18)
DX: R21 Rash and other nonspecific skin eruption (principal); N17.9 Acute kidney failure, unspecified; K21.9 Gastro-esophageal reflux disease without esophagitis; J44.9 Chronic obstructive pulmonary disease, unspecified; I12.9 Hypertensive chronic kidney disease with stage 1 through stage 4 chronic kidney disease, or unspecified chronic kidney disease; E11.22 Type 2 diabetes mellitus with diabetic chronic kidney disease; N18.9 Chronic kidney disease, unspecified; E86.0 Dehydration; R10.9 Unspecified abdominal pain; R79.89 Other specified abnormal findings of blood chemistry
CPT/HCPCS: 0241U-QW; 36415; 71046-TC-FY; 74176-TC; 76700-TC; 80053; 81003; 82550; 82553; 82570; 82595; 82962; 83516; 83520; 83605; 83735; 84155; 84156; 84165; 84443; 84484; 85025; 85610; 85651; 85730; 86038; 86140; 86160; 86225; 86235; 86256; 86431; 86704; 86708; 86803; 87040; 87086; 87340; 87517; 88305-TC; 93005; 93010; 93306-TC; 93971-TC; 99285-25; G0480; J0131; J1644